=== PATIENT | female | born 1995 | race Caucasian/White ===

== ENCOUNTER 2020-04-08 08:58 | Emergency (ER) | payer SELFPAY ==
[2020-04-08 09:08] VITALS: BP 151/98; PULSE 106; RESP 16; TEMP 36.3; O2SAT 100; BMI 31.8
--- NOTE | 2020-04-08 09:22 | ED_ITS ---
HPI - General Adult General: Chief complaint: Urogenital-Female Stated complaint: pelvic pain, vomiting, Time Seen by Provider: 04/08/20 09:14 History of Present Illness: HPI narrative: Patient is a 24-year-old female that had a positive at-home test on has been having nausea, vomiting and pelvic pain. Past surgical history of see section. For the past 3 weeks patient says she has felt nauseous and has been vomiting. She started develo ping some bilateral sharp/stabbing pelvic pain about 2 days ago. She denies any vaginal bleeding, vaginal discharge, dysuria, hematuria, diarrhea or constipation. About 2 weeks ago, patient had a positive test at home. She is unsure on how far along she is but states that her last period was February 17. She says her menstruation is regular every month and very predictable. Denies any fever, chills, chest pain or shortness of breath. Patient says she does not want any Tylenol or any pain medications today. Associated symptoms: Reports nausea and vomiting; Deny chest pain, dyspnea, headache(s), rash or palpitations Review of Systems Const: Denies: fever(s), chills or fatigue Eyes: Denies: change in vision or eye discomfort ENMT: Denies: throat pain, odynophagia, nasal discharge or nasal congestion Card: Denies: chest pain, palpitations, edema, swelling of feet/ankles, dyspnea on exertion or orthopnea Resp: Denies: dyspnea, productive cough or non-productive cough GI: Reports: nausea and vomiting; Denies: abdominal pain, diarrhea, constipation or hematochezia : Reports: pelvic pain and other (positive test at home); Denies: flank pain, dysuria or hematuria Musc: Denies: neck pain, back pain or extremity swelling Skin/Breast: Denies: rash or new lesions Neuro: Denies: headache(s), numbness in extremities or weakness in extremities PFSH ED PFSH: Social History Smoking and tobacco status: never smoked Alcohol intake: current Alcohol intake frequency: holidays/special occasions only Female Reproductive History: Date of last menstrual period: 02/18/20 Physical Exam Const: COMMON NORMALS: no acute distress, patient oriented x3, healthy appearing and alert GENERAL APPEARANCE: cooperative and comfortable HENMT: COMMON NORMALS: normocephalic HEAD & SCALP: normocephalic MOUTH: Normal oral and palatal mucosa present THROAT: posterior oropharynx normal and uvula midline Eye: COMMON NORMALS: Equal, round and reactive pupils present PUPIL: Yes Equal, round and reactive pupils present Neck/C-Spine: COMMON NORMALS: supple GENERAL: Yes normal visual inspection Resp: COMMON NORMALS: normal respiratory effort, No retractions, No use of accessory muscles and clear to auscultation bilaterally EFFORT & INSPECTION: Yes able to speak in complete sentences, No tachypneic and No respiratory distress AUSCULTATION: clear to auscultation bilaterally Cardio: COMMON NORMALS: regular rate, regular rhythm, S1 normal heart sound present, S2 normal heart sound present, No gallops present (Cardio), No clicks present (Cardio), No murmurs present (Cardio) and Peripheral pulses 2+ throughout RATE: regular rate RHYTHM: regular rhythm HEART SOUNDS: S1 normal heart sound present and S2 normal heart sound present PERIPHERAL PULSES: Peripheral pulses 2+ throughout GI: COMMON NORMALS: Normal to inspection, nondistended, normoactive bowel sounds present, Soft to palpation and no masses PALPATION: Yes Soft to palpation and Yes Tenderness to palpation present (GI) Details: other (Mild bilateral lower pelvic tenderness.) : COMMON NORMALS: Yes no CVA tenderness BLADDER/KIDNEY EXAM: Yes no CVA tenderness Back/Pelvis: COMMON NORMALS: no CVA tenderness Extremity: COMMON NORMALS: normal to inspection and no pedal edema Neuro: COMMON NORMALS: patient oriented x3 and moves all extremities SENSORIUM/ORIENTATION: Yes alert Skin: GENERAL SKIN EXAM: dry skin Course Reevaluation(s): Reevaluation #1: After patient received IV fluids and IV Reglan, her nausea greatly improved. Vital Signs: Vital signs: Vital Signs Temperature 97.3 F L 04/08/20 09:08 Pulse Rate 93 04/08/20 11:58 Respiratory Rate 16 04/08/20 11:58 Blood Pressure 120/64 04/08/20 10:13 Pulse Oximetry 97 04/08/20 11:58 MDM - General Adult MDM Narrative: Medical decision making narrative: Patient is a 24-year-old female comes to the ED with pelvic pain, nausea and a positive test. Patient appears in no acute distress or pain. CBC and CMP were unremarkable. Urinalysis showed no signs of UTI. hCG quant 65,471. Ultrasound OB shows single viable intrauterine estimated around 7 weeks and 1 day gestation. Patient's nausea improved with IV fluids and Reglan. She was told to follow-up with her OB doctor and 7 to 10 days or next OB appointment. Return to ED precautions given. Patient was sent home with a prescription for Reglan to help with nausea. Patient understood and agreed with plan. Lab Data: Attestation: I reviewed the patient's lab results. Labs: Lab Results 04/08/20 04/08/20 04/08/20 Range/Units 09:30 09:30 09:30 WBC 6.9 (4.0-10.0) 10^3/ uL RBC 4.65 (4.1-5.3) 10^6/u L Hgb 13.6 (11.5-15.3) g/dL Hct 43.2 (37.0-47.0) % MCV 92.9 (81-99) fL MCH 29.2 (28.0-34.0) pg MCHC 31.5 (30.0-36.0) g/dL RDW 11.8 L (12.1-15.1) % Plt Count 287 (130-400) 10^3/c mm MPV 9.7 (7.4-10.4) fL Neut % (Auto) 68.9 % Lymph % (Auto) 20.1 % [place] % (Auto) 8.7 % Eos % (Auto) 1.5 % Baso % (Auto) 0.4 % Neut # (Auto) 4.72 (1.8-7.7) 10^3/u L Lymph # (Auto) 1.4 (0.8-4.8) 10^3/u L [place] # (Auto) 0.6 (0.2-0.9) 10^3/u L Eos # (Auto) 0.1 (0.0-0.8) 10^3/u L Baso # (Auto) 0.0 (0.0-0.1) 10^3/u L Nucleated RBC % (a uto) 0 % Nucleated RBCs # 0.0 /100WBC Sodium 137 (136-145) mmol/L Potassium 3.5 (3.5-5.1) mmol/L Chloride 101 (98-107) mmol/L Carbon Dioxide 24 (22-29) mmol/L Anion Gap 15.5 (5-19) BUN 8 (6-20) mg/dL Creatinine 0.5 (0.5-0.9) mg/dL GFR Calculation 150.3 H (90-130) mL/min Glucose 93 (65-115) mg/dL Calculated Osmolal ity 282 L (285-295) mOsm/k g Calcium 9.4 (8.5-10.5) mg/dL Total Bilirubin 0.6 (0.15-1.2) mg/dL AST 19 (0-32) U/L ALT 32 (0-33) U/L Alkaline Phosphata se 49 (35-105) IU/L Total Protein 8.1 (6.6-8.7) g/dL Albumin 4.9 (3.5-5.2) g/dL Globulin 3.2 (1.3-4.6) g/dL Lipase 15 (13-60) U/L HCG, Qual Positive H (Negative) Ser , Tad i-Qnt mIU/mL Urine Color (Yellow) Urine Appearance (CLEAR) Urine pH (5-7) Ur Specific Gravit y (1.005-1.030) Urine Protein (Negative) Urine Glucose (UA) (Normal) Urine Ketones (Negative) Urine Blood (Negative) Urine Nitrate (Negative) Urine Bilirubin (Negative) Urine Urobilinogen (Negative) mg/dL Ur Leukocyte Bri ase (Negative) Urine RBC (0-2) /hpf Urine WBC (0-5) /hpf Ur Squamous Epith Cells (0-5) /hpf Amorphous Sediment Urine Bacteria (NONE) /hpf Urine Mucus /hpf 04/08/20 04/08/20 Range/Units 09:30 09:30 WBC (4.0-10.0) 10^3/ uL RBC (4.1-5.3) 10^6/u L Hgb (11.5-15.3) g/dL Hct (37.0-47.0) % MCV (81-99) fL MCH (28.0-34.0) pg MCHC (30.0-36.0) g/dL RDW (12.1-15.1) % Plt Count (130-400) 10^3/c mm MPV (7.4-10.4) fL Neut % (Auto) % Lymph % (Auto) % [place] % (Auto) % Eos % (Auto) % Baso % (Auto) % Neut # (Auto) (1.8-7.7) 10^3/u L Lymph # (Auto) (0.8-4.8) 10^3/u L [place] # (Auto) (0.2-0.9) 10^3/u L Eos # (Auto) (0.0-0.8) 10^3/u L Baso # (Auto) (0.0-0.1) 10^3/u L Nucleated RBC % (a uto) % Nucleated RBCs # /100WBC Sodium (136-145) mmol/L Potassium (3.5-5.1) mmol/L Chloride (98-107) mmol/L Carbon Dioxide (22-29) mmol/L Anion Gap (5-19) BUN (6-20) mg/dL Creatinine (0.5-0.9) mg/dL GFR Calculation (90-130) mL/min Glucose (65-115) mg/dL Calculated Osmolal ity (285-295) mOsm/k g Calcium (8.5-10.5) mg/dL Total Bilirubin (0.15-1.2) mg/dL AST (0-32) U/L ALT (0-33) U/L Alkaline Phosphata se (35-105) IU/L Total Protein (6.6-8.7) g/dL Albumin (3.5-5.2) g/dL Globulin (1.3-4.6) g/dL Lipase (13-60) U/L HCG, Qual (Negative) Ser , Tad i-Qnt 50351.00 mIU/mL Urine Color Yellow (Yellow) Urine Appearance Clear (CLEAR) Urine pH 5.0 (5-7) Ur Specific Gravit y 1.020 (1.005-1.030) Urine Protein Trace (Negative) Urine Glucose (UA) Norm (Normal) Urine Ketones 1+ H (Negative) Urine Blood Neg (Negative) Urine Nitrate Negative (Negative) Urine Bilirubin Neg (Negative) Urine Urobilinogen 1 H (Negative) mg/dL Ur Leukocyte Bri ase Negative (Negative) Urine RBC None (0-2) /hpf Urine WBC None (0-5) /hpf Ur Squamous Epith Cells 0-4 H (0-5) /hpf Amorphous Sediment Not Reportable Urine Bacteria Trace (NONE) /hpf Urine Mucus 1+ /hpf Imaging Data^: US OB: Attestation: I personally reviewed and interpreted this imaging study as follows: Radiologist's impression: [address] [address] Ultrasound Report Signed Patient: Haylie Salvador Unit #: [id number] : [id number] Age/Sex: 24 / F ADM Date: 04/08/20 Loc: ER Room/Bed: Attending Dr: Ordering Provider/Ordering MD: Thuan Palacios Date of Service: 04/08/20 Procedure(s): US OB lmt with transvaginal Accession Number(s): [id number] Report Number: [id number] WS: [id number] PELVIC ULTRASOUND REASON FOR VISIT: with pelvic pain TECHNIQUE: Grayscale and Doppler transabdominal and transvaginal pelvic ultrasound. FINDINGS: Uterus measures 8.93 cm x 5.44 cm x 6.45 centimeters. Gestational sac and yolk sac identified. The fetus is identified and viable wi th a heart rate of 118. [place]-rump length is 0.73 cm. Yolk sac 0.58 cm. Gestational sac 2.11 cm. Probable small subchorionic hemorrhage. Right right ovary measures 2.57 cm x 1.81 cm x 2.41 centimeters. Left ovary measures 3.51 centimeters by 2.24 cm x 3.28 cm. Small left ovarian cyst. No pelvic mass or free pelvic fluid identified. US/US OB lmt with transvaginal IMPRESSION: Single viable intrauterine EGA 6 weeks 0 days to 7 weeks 1 day. Dictated By: Renato Hickman Jr, MD Signed By: Renato Hickman Jr, MD Signed Date/Time: 04/08/20 110 DD/ 1059 Discharge Plan Discharge Patient Disposition: Home Clinical Impression: Nausea and vomiting in prior to 22 weeks gestation Qualifiers: Weeks of gestation: less than 8 weeks Qualified Code(s): Z3A.01 - Less than 8 weeks gestation of Condition: Stable Prescriptions: New metoclopramide HCl 10 mg tablet,disintegrating 10 mg PO TID Qty: 21 RF: 0 No Action No Known Home Medications RF: 0 Discharge Orders: Discharge ED (Routine); Ordered 04/08/20 Ordered By: Thuan Palacios Discharge Diet: Regular Discharge Activity: Increase activity as tolerated Patient Instructions: Morning Sickness (ED), (ED), Diet (GEN) Activity Restrictions/Additional Instructions: Follow-up with medical provider as directed. Contact OB doctor and set up appointment for first care appointment. Take the prescribed Reglan to help with any nausea. Stay hydrated and drink plenty of water and have small snacks available throughout the day to help with nausea. Take medications as prescribed. Return to the ER or your medical provider if condition worsens, increase pelvic pain, vaginal bleeding or fevers. Please read and understand discharge instructions. If any questions, please ask. Coding Level of Care Code ED Taping Machine Operator for Teresa Fwd Exam Comprehensive
[2020-04-08 09:45] LABS: Basophils % 0.4 %; Eosinophils # 0.1 10^3/uL (0.0-0.8); Eosinophils % 1.5 %; Hematocrit 43.2 % (37.0-47.0); Hemoglobin 13.6 g/dL (11.5-15.3); Lymphocytes # 1.4 10^3/uL (0.8-4.8); Lymphocytes % 20.1 %; Mean Corpuscular HGB Conc 31.5 g/dL (30.0-36.0); Mean Corpuscular Hemoglobin 29.2 pg (28.0-34.0); Mean Corpuscular Volume 92.9 fL (81-99); Mean Platelet Volume 9.7 fL (7.4-10.4); Monocytes # 0.6 10^3/uL (0.2-0.9); Monocytes % 8.7 %; Neutrophils # 4.72 10^3/uL (1.8-7.7); Neutrophils % 68.9 %; Nucleated Red Blood Cells % 0 %; Platelet Count 287 10^3/cmm (130-400); Red Blood Count 4.65 10^6/uL (4.1-5.3); Red Cell Distribution Width 11.8 % (12.1-15.1); White Blood Count 6.9 10^3/uL (4.0-10.0)
--- NOTE | 2020-04-08 09:51 | US_ITS ---
WS: [id number] PELVIC ULTRASOUND REASON FOR VISIT: with pelvic pain TECHNIQUE: Grayscale and Doppler transabdominal and transvaginal pelvic ultrasound. FINDINGS: Uterus measures 8.93 cm x 5.44 cm x 6.45 centimeters. Gestational sac and yolk sac identified. The fetus is identified and viable with a heart rate of 118. [place]-rump length is 0.73 cm. Yolk sac 0.58 cm. Gestational sac 2.11 cm. Probable small subchorionic hemorrhage. Right right ovary measures 2.57 cm x 1.81 cm x 2.41 centimeters. Left ovary measures 3.51 centimeters by 2.24 cm x 3.28 cm. Small left ovarian cyst. No pelvic mass or free pelvic fluid identified. US/US OB lmt with transvaginal IMPRESSION: Single viable intrauterine EGA 6 weeks 0 days to 7 weeks 1 day.
[2020-04-08 10:00] LABS: Bilirubin Urine Neg (Negative); Blood Urine Neg (Negative); Glucose Urine UA Norm (Normal); Ketones Urine 1+ (Negative); Leukocyte Esterase Urine Negative (Negative); Nitrate Urine Negative (Negative); Protein Urine Trace (Negative); Urine Appearance Clear (CLEAR); Urine Color Yellow (Yellow); Urobilinogen Urine 1 mg/dL (Negative)
[2020-04-08] MEDS: metoclopramide 5 mg/mL SDV 2 mL 10 MG IVP (10:00)
[2020-04-08] MEDS: sodium chloride 0.9% 1,000 ML 999 ML IV (10:00)
[2020-04-08 10:08] LABS: Alanine Aminotransferase 32 U/L (0-33); Albumin Level 4.9 g/dL (3.5-5.2); Alkaline Phosphatase 49 IU/L (35-105); Aspartate Amino Transferase 19 U/L (0-32); Blood Urea Nitrogen 8 mg/dL (6-20); Calcium 9.4 mg/dL (8.5-10.5); Carbon Dioxide 24 mmol/L (22-29); Globulin 3.2 g/dL (1.3-4.6); Glomerular Filtration Rate 150.3 mL/min (90-130); Glucose 93 mg/dL (65-115); Lipase 15 U/L (13-60); Total Bilirubin 0.6 mg/dL (0.15-1.2); Total Protein 8.1 g/dL (6.6-8.7)
[2020-04-08 10:11] LABS: HCG, Serum Qual Positive (Negative)
[2020-04-08 10:13] VITALS: BP 120/64; PULSE 83; RESP 22; O2SAT 99
[2020-04-08 10:15] LABS: Squamous Epithelial Cell Urine 0-4 /hpf (0-5)
[2020-04-08 10:16] LABS: Add Urine Culture? No; Bacteria Urine TRACE /hpf; Mucus Urine 1+ /hpf
[2020-04-08 10:28] LABS: Anion Gap 15.5 (5-19); Chloride 101 mmol/L (98-107); Osmolality Calculated 282 mOsm/kg (285-295); Potassium 3.5 mmol/L (3.5-5.1); Sodium 137 mmol/L (136-145)
[2020-04-08 10:31] VITALS: PULSE 88; RESP 22; O2SAT 98
[2020-04-08 11:58] VITALS: PULSE 93; RESP 16; O2SAT 97
--- NOTE | 2020-04-11 14:01 | DCPLANNER ---
Addendum entered by Lilo Tristan 04/26/20 12:05: fund manager called [facility] to confirm if patient had called to schedule a follow up appointment. fund manager was told that no appointment had been scheduled for patient. Addendum entered by Lilo Tristan 04/19/20 10:35: fund manager called [facility] to confirm that patient was accepted by Dr. Garcia. fund manager was told that patients information had been reviewed and that patient would need to call and make appointment. fund manager called patient and informed patient that she would need to call [facility] and schedule a follow up appointment. Original Note: fund manager had message to speak with patient about getting established with a primary care physician. fund manager spoke with patient, she stated that she would like to see Dr. Garcia at [facility]. fund manager faxed patients information to [facility] for review.
== END 2020-04-08 12:00 | disposition home or self-care (01) ==
PROVIDERS: Emergency Provider Physician Assistant
DX: O26.891 Other specified pregnancy related conditions, first trimester (principal); R11.2 Nausea with vomiting, unspecified; Z3A.01 Less than 8 weeks gestation of pregnancy
CPT/HCPCS: 12345; 76815; 76817; 76830; 76857; 80053; 81001; 83690; 84702; 84703; 85025; 96361; 96374; 99283; J2765; J7030

== ENCOUNTER 2020-04-18 10:46 | Emergency (ER) | payer SELFPAY ==
[2020-04-18] VITALS (10 sets, daily range): BP systolic 103–134; BP diastolic 65–93; PULSE 78–112; RESP 14–18; TEMP 36.4–36.9; O2SAT 99–100; BMI 26.2
--- NOTE | 2020-04-18 12:52 | ED_ITS ---
HPI - Allergic Reaction General: Chief complaint: Allergic Reaction Stated complaint: 8 wks /poss allergic reaction Time Seen by Provider: 04/18/20 12:52 History of Present Illness: HPI narrative: Patient is a 24-year-old female comes to the ED with nausea vomiting and is approximately 8 weeks . Patient was seen here in the ED for nausea vomiting back on April 08. She was discharged with a prescription for Reglan to help with nausea. Patient says she still continues to be nauseous and the Reglan has not been helping her. She states that the Reglan was also given her some side effects of anxiety and worsening nausea and vomiting. Patient stopped taking the Reglan today and took a dose of Benadryl this morning 25 mg. Denies any vaginal bleeding, vaginal discharge, abdominal cramping or bladder or bowel symptoms. Associated symptoms: Reports nausea and vomiting; Deny abdominal pain Review of Systems Const: Denies: fever(s), chills or fatigue Eyes: Denies: change in vision or eye discomfort ENMT: Denies: throat pain, odynophagia, nasal discharge or nasal congestion Card: Denies: chest pain, palpitations, edema, swelling of feet/ankles, dyspnea on exertion or orthopnea Resp: Denies: dyspnea, productive cough or non-productive cough GI: Reports: nausea and vomiting; Denies: abdominal pain, diarrhea, constipation or hematochezia : Denies: flank pain, dysuria or hematuria Musc: Denies: neck pain, back pain or extremity swelling Skin/Breast: Denies: rash or new lesions Neuro: Denies: headache(s), numbness in extremities or weakness in extremities Psych: Reports: anxiety (reaction to reglan) [facility] ED PFSH: Social History Smoking and tobacco status: never smoked Alcohol intake: current Alcohol intake frequency: holidays/special occasions only Female Reproductive History: Date of last menstrual period: 02/18/20 Physical Exam Const: COMMON NORMALS: no acute distress, patient oriented x3, healthy appearing and alert GENERAL APPEARANCE: cooperative, comfortable and anxious HENMT: COMMON NORMALS: normocephalic HEAD & SCALP: normocephalic MOUTH: Normal oral and palatal mucosa present THROAT: posterior oropharynx normal and uvula midline Neck/C-Spine: COMMON NORMALS: supple GENERAL: Yes normal visual inspection Resp: COMMON NORMALS: normal respiratory effort, No retractions, No use of accessory muscles and clear to auscultation bilaterally AUSCULTATION: clear to auscultation bilaterally Cardio: COMMON NORMALS: regular rate, regular rhythm, S1 normal heart sound present, S2 normal heart sound present, No gallops present (Cardio), No clicks present (Cardio), No murmurs present (Cardio) and Peripheral pulses 2+ throughout RATE: regular rate RHYTHM: regular rhythm HEART SOUNDS: S1 normal heart sound present and S2 normal heart sound present PERIPHERAL PULSES: Peripheral pulses 2+ throughout GI: COMMON NORMALS: Normal to inspection, nondistended, normoactive bowel sounds present, Soft to palpation, non-tender and no masses PALPATION: Yes Soft to palpation : COMMON NORMALS: Yes no CVA tenderness BLADDER/KIDNEY EXAM: Yes no CVA tenderness Back/Pelvis: COMMON NORMALS: no CVA tenderness Extremity: COMMON NORMALS: normal to inspection Neuro: COMMON NORMALS: patient oriented x3 and moves all extremities SENSORIUM/ORIENTATION: Yes alert Skin: GENERAL SKIN EXAM: dry skin Course Vital Signs: Vital signs: Vital Signs Temperature 97.5 F L 04/18/20 11:11 Pulse Rate 91 04/18/20 15:36 Respiratory Rate 18 04/18/20 15:36 Blood Pressure 117/66 04/18/20 15:36 Pulse Oximetry 99 04/18/20 15:36 MDM - Allergic Reaction MDM Narrative: Medical decision making narrative: Patient is a 8-week 24-year-old female comes to the ED with nausea and vomiting. Patient denies any fevers, vaginal bleeding, vaginal discharge dysuria, hematuria or any cramping. She was seen here in the ED for same complaint on April 08 and sent home with a prescription for Reglan. Patient has been taking Reglan and has not helped her nausea and vomiting. She feels like the Reglan is causing her to be anxious in the nausea and vomiting to get worse. CBC, CMP and UA were unremarkable. Patient was given IV fluids, Zofran and 50 mg of Benadryl while here in the ED and her symptoms greatly improved. Patient was told to stop taking the Reglan. Patient was discharged in sent home with a prescription for Zofran for nausea. I placed an order with case management for patient to be referred to an OB doctor. Patient says she has been calling around and has not had any luck setting up an appointment yet. I told patient nurse case manager will call in the next couple days to set up an appointment with an OB provider. Return to ED precautions given. Patient understood and agreed with plan. Lab Data: Attestation: I reviewed the patient's lab results. Labs: Lab Results 04/18/20 04/18/20 04/18/20 Range/Units 13:55 14:40 14:40 WBC 8.2 (4.0-10.0) 10^3/ uL RBC 4.36 (4.1-5.3) 10^6/u L Hgb 12.7 (11.5-15.3) g/dL Hct 38.9 (37.0-47.0) % MCV 89.2 (81-99) fL MCH 29.1 (28.0-34.0) pg MCHC 32.6 (30.0-36.0) g/dL RDW 11.6 L (12.1-15.1) % Plt Count 351 (130-400) 10^3/c mm MPV 9.8 (7.4-10.4) fL Neut % (Auto) 74.3 % Lymph % (Auto) 16.9 % [place] % (Auto) 7.6 % Eos % (Auto) 0.6 % Baso % (Auto) 0.4 % Neut # (Auto) 6.07 (1.8-7.7) 10^3/u L Lymph # (Auto) 1.4 (0.8-4.8) 10^3/u L [place] # (Auto) 0.6 (0.2-0.9) 10^3/u L Eos # (Auto) 0.1 (0.0-0.8) 10^3/u L Baso # (Auto) 0.0 (0.0-0.1) 10^3/u L Nucleated RBC % (a uto) 0 % Nucleated RBCs # 0.0 /100WBC Sodium 136 (136-145) mmol/L Potassium 3.4 L (3.5-5.1) mmol/L Chloride 102 (98-107) mmol/L Carbon Dioxide 18 L (22-29) mmol/L Anion Gap 19.4 H (5-19) BUN 11 (6-20) mg/dL Creatinine 0.4 L (0.5-0.9) mg/dL GFR Calculation 194.5 H (90-130) mL/min Glucose 75 (65-115) mg/dL Calculated Osmolal ity 280 L (285-295) mOsm/k g Calcium 9.2 (8.5-10.5) mg/dL Total Bilirubin 0.9 (0.15-1.2) mg/dL AST 19 (0-32) U/L ALT 46 H (0-33) U/L Alkaline Phosphata se 45 (35-105) IU/L Total Protein 7.5 (6.6-8.7) g/dL Albumin 4.6 (3.5-5.2) g/dL Globulin 2.9 (1.3-4.6) g/dL Urine Color [place] (Yellow) Urine Appearance Hazy A (CLEAR) Urine pH 5 (5-7) Ur Specific Gravit y 1.025 (1.005-1.030) Urine Protein Neg (Negative) Urine Glucose (UA) Norm (Normal) Urine Ketones 3+ H (Negative) Urine Blood Neg (Negative) Urine Nitrate Negative (Negative) Urine Bilirubin 1+ H (Negative) Urine Urobilinogen 4 H (Negative) mg/dL Ur Leukocyte Bri ase Negative (Negative) Urine RBC 0-4 H (0-2) /hpf Urine WBC None (0-5) /hpf Ur Squamous Epith Cells 5-10 H (0-5) /hpf Amorphous Sediment Not Reportable Urine Bacteria 2+ H (NONE) /hpf Urine Mucus 4+ /hpf Discharge Plan Discharge Patient Disposition: Home Clinical Impression: Nausea and vomiting during Condition: Stable Prescriptions: New ondansetron HCl 4 mg tablet 4 mg PO Q8H Qty: 30 RF: 0 No Action metoclopramide HCl 10 mg tablet,disintegrating 10 mg PO TID Qty: 21 RF: 0 Discharge Orders: Discharge ED (Routine); Ordered 04/18/20 Ordered By: Thuan Palacios Discharge Diet: Advance as tolerated Discharge Activity: Increase activity as tolerated Patient Instructions: Acute Nausea and Vomiting (ED) Activity Restrictions/Additional Instructions: Follow-up with OB provider as directed. Stop taking the Reglan as previously prescribed. Sending you with a prescription for Zofran to use for nausea. Take medications as prescribed. Drink plenty of fluids and stay hydrated. Return to the ER or your medical provider if condition worsens. Please read and understand discharge instructions. If any questions, please ask. Coding Level of Care Code ED Finance Attorney for Teresa Fwd Exam Comprehensive
[2020-04-18] MEDS: ondansetron 2 mg/ML SDV 2 mL 4 MG IVP (14:57)
[2020-04-18] MEDS: diphenhydrAMINE 50 mg/mL SDV 1mL IVP (14:57)
[2020-04-18] MEDS: sodium chloride 0.9% 1,000 ML 999 ML IV (14:58)
[2020-04-18 15:10] LABS: Basophils % 0.4 %; Eosinophils # 0.1 10^3/uL (0.0-0.8); Eosinophils % 0.6 %; Hematocrit 38.9 % (37.0-47.0); Hemoglobin 12.7 g/dL (11.5-15.3); Lymphocytes # 1.4 10^3/uL (0.8-4.8); Lymphocytes % 16.9 %; Mean Corpuscular HGB Conc 32.6 g/dL (30.0-36.0); Mean Corpuscular Hemoglobin 29.1 pg (28.0-34.0); Mean Corpuscular Volume 89.2 fL (81-99); Mean Platelet Volume 9.8 fL (7.4-10.4); Monocytes # 0.6 10^3/uL (0.2-0.9); Monocytes % 7.6 %; Neutrophils # 6.07 10^3/uL (1.8-7.7); Neutrophils % 74.3 %; Nucleated Red Blood Cells % 0 %; Platelet Count 351 10^3/cmm (130-400); Red Blood Count 4.36 10^6/uL (4.1-5.3); Red Cell Distribution Width 11.6 % (12.1-15.1); White Blood Count 8.2 10^3/uL (4.0-10.0)
[2020-04-18 15:14] LABS: Bilirubin Urine 1+ (Negative); Blood Urine Neg (Negative); Glucose Urine UA Norm (Normal); Ketones Urine 3+ (Negative); Leukocyte Esterase Urine Negative (Negative); Nitrate Urine Negative (Negative); Protein Urine Neg (Negative); Specific Gravity, Urine 1.025 (1.005-1.030); Urine Color Orange (Yellow); Urobilinogen Urine 4 mg/dL (Negative); pH Urine 5 (5-7)
[2020-04-18 15:15] LABS: Add Urine Culture? No; Bacteria Urine 2+ /hpf; Mucus Urine 4+ /hpf; RBC Urine 0-4 /hpf (0-2); Urine Appearance Hazy (CLEAR)
[2020-04-18 15:15] LABS: Alanine Aminotransferase 46 U/L (0-33); Albumin Level 4.6 g/dL (3.5-5.2); Alkaline Phosphatase 45 IU/L (35-105); Anion Gap 19.4 (5-19); Aspartate Amino Transferase 19 U/L (0-32); Blood Urea Nitrogen 11 mg/dL (6-20); Calcium 9.2 mg/dL (8.5-10.5); Carbon Dioxide 18 mmol/L (22-29); Chloride 102 mmol/L (98-107); Globulin 2.9 g/dL (1.3-4.6); Glomerular Filtration Rate 194.5 mL/min (90-130); Glucose 75 mg/dL (65-115); Osmolality Calculated 280 mOsm/kg (285-295); Potassium 3.4 mmol/L (3.5-5.1); Sodium 136 mmol/L (136-145); Total Bilirubin 0.9 mg/dL (0.15-1.2); Total Protein 7.5 g/dL (6.6-8.7)
--- NOTE | 2020-04-19 10:36 | DCPLANNER ---
manager community had message to schedule patient a follow up appointment with an OB physician. manager community worked with patient in the past to get established with a primary care physician and OB physician. manager community spoke with patient, she wanted case manger to refer patient [place] [facility] [place] Garcia, transplant case manager faxed patients information to the clinic for review. manager community [place] [facility] was told that patients information had been reviewed, and that patient would need to call and make appointment. manager community called patient and told patient to call the clinic to schedule a follow up appointment.
== END 2020-04-18 15:36 | disposition home or self-care (01) ==
PROVIDERS: Emergency Provider Physician Assistant
DX: O26.891 Other specified pregnancy related conditions, first trimester (principal); Z3A.08 8 weeks gestation of pregnancy; R11.2 Nausea with vomiting, unspecified
CPT/HCPCS: 12345; 80053; 81001; 85025; 96361; 96374; 96375; 99283; J1200; J2405; J7030

== ENCOUNTER 2020-09-01 14:35 | Outpatient (CLI) | payer SELFPAY ==
[2020-09-01 15:08] VITALS: BP 126/75; PULSE 111
[2020-09-01 15:23] VITALS: BP 128/77; PULSE 125
--- NOTE | 2020-09-01 15:27 | US_ITS ---
WS: [id number] ULTRASOUND OB LIMITED TECHNIQUE: Limited ultrasound examination of the fetus. CLINICAL INFORMATION: kicked in stomach, decreased movement FINDINGS: Cervix measures 4.2 cm Single interuterine gestation. presentation is vertex Placental location is posterior. heart rate 150 BPM. Normal KEANU 5.74 cm Biophysical profile 8 out of 8. breathin movement: 2 tone: 2 Amniotic fluid: 2 IMPRESSION Normal biophysical profile 8 out of 8
[2020-09-01 15:38] VITALS: BP 118/66; PULSE 108
[2020-09-01 15:53] VITALS: BP 118/68; PULSE 109
[2020-09-01 15:58] VITALS: BMI 30.4
[2020-09-01 16:08] VITALS: BP 112/69; PULSE 107
[2020-09-01 18:26] LABS: Nitrazine Paper, PH Negative
== END 2020-09-01 16:20 | disposition home or self-care (01) ==
LOC: OPOB 14:43 → OBGYN 15:00
PROVIDERS: Visit Provider Family Medicine
DX: O36.8190 Decreased fetal movements, unspecified trimester, not applicable or unspecified (principal); Z3A.00 Weeks of gestation of pregnancy not specified
CPT/HCPCS: 76819; 83986; 99211

== ENCOUNTER 2020-11-13 13:55 | Outpatient (CLI) | payer OTHER, SELFPAY ==
[2020-11-13] VITALS (8 sets, daily range): BP systolic 121–142; BP diastolic 74–92; PULSE 90–118; RESP 16; TEMP 36.6; BMI 34.0
[2020-11-13 15:11] LABS: Basophils % 0.3 %; Eosinophils # 0.1 10^3/uL (0.0-0.8); Eosinophils % 1.3 %; Hematocrit 32.2 % (37.0-47.0); Hemoglobin 10.1 g/dL (11.5-15.3); Lymphocytes # 1.4 10^3/uL (0.8-4.8); Lymphocytes % 17.9 %; Mean Corpuscular HGB Conc 31.4 g/dL (30.0-36.0); Mean Corpuscular Hemoglobin 27.4 pg (28.0-34.0); Mean Corpuscular Volume 87.5 fL (81-99); Mean Platelet Volume 10.8 fL (7.4-10.4); Monocytes # 0.8 10^3/uL (0.2-0.9); Monocytes % 10.4 %; Neutrophils # 5.34 10^3/uL (1.8-7.7); Neutrophils % 69.3 %; Nucleated Red Blood Cells % 0 %; Platelet Count 199 10^3/cmm (130-400); Red Blood Count 3.68 10^6/uL (4.1-5.3); Red Cell Distribution Width 13.3 % (12.1-15.1); White Blood Count 7.7 10^3/uL (4.0-10.0)
[2020-11-13 15:51] LABS: Bilirubin Urine Neg (Negative); Blood Urine Neg (Negative); Glucose Urine UA Norm (Normal); Ketones Urine Negative (Negative); Leukocyte Esterase Urine 2+ (Negative); Nitrate Urine Negative (Negative); Protein Urine Neg (Negative); Specific Gravity, Urine 1.015 (1.005-1.030); Urine Appearance Clear (CLEAR); Urine Color Yellow (Yellow); Urobilinogen Urine Norm (Negative); pH Urine 6.5 (5-7)
[2020-11-13 15:52] LABS: Add Urine Culture? No; Bacteria Urine 1+ /hpf; WBC Urine 0-4 /hpf (0-5)
== END 2020-11-13 16:15 | disposition home or self-care (01) ==
LOC: OPOB 14:05 → OBGYN 14:06
PROVIDERS: Visit Provider Family Medicine
DX: O26.899 Other specified pregnancy related conditions, unspecified trimester (principal); Z3A.00 Weeks of gestation of pregnancy not specified; R10.2 Pelvic and perineal pain
CPT/HCPCS: 36415; 59025; 81001; 85025; 99211

== ENCOUNTER 2020-11-22 05:25 | Inpatient (IN) | payer OTHER, SELFPAY ==
--- NOTE | 2020-11-11 16:44 | ANES.PREANE2 ---
Pre-Anesthetic Assessment Pre-Anesthetic Assessment: Height/Weight: Height 1.6 m Proposed Procedure: Operation Date: 11/22/20 07:00 Proposed Procedures p Section With Tubal(Not Applicable) - Hao Hicks MD Was Beta Ivan taken within 24 hours: N/A Was Clonidine taken within 24 hours: N/A Social: Social History: No alcohol and No tobacco Exam: Pre-Anes Outpt Exam: alert, oriented x 3, clear to auscultation bilaterally and regular rate & rhythm Airway: Submandibular: WNL Cervical ROM: WNL MP: 2 Dentition: Full History/ROS: No significant history except as noted Anesthetic Plan: ASA status: 2 Other: SAB Risk of > 500 ml blood loss (7ml/kg in children): Yes, adequate IV access and fluids planned PFSH Anesthesia PFSH: Social History Smoking and tobacco status: never smoked Alcohol intake: current Alcohol intake frequency: holidays/special occasions only Female Reproductive History: Date of last menstrual period: 02/18/20 Data Anesthesia Cardiac Studies: No Data to Display
[2020-11-22] VITALS (29 sets, daily range): BP systolic 93–135; BP diastolic 42–85; PULSE 67–100; RESP 15–18; TEMP 35.8–37.6; O2SAT 95–100; BMI 33.8
[2020-11-22] MEDS: lactated ringers 1,000 ML 999 ML IV (05:55)
[2020-11-22] MEDS: famotidine 20 mg/2 mL INJ IVP (06:33)
[2020-11-22] MEDS: metoclopramide 5 mg/mL SDV 2 mL 10 MG IVP (06:33)
[2020-11-22] MEDS: citric acid-sodium citrate 30 mL UDC PO (06:33)
[2020-11-22] MEDS: clindamycin 900 MG/50 ML PREMIX 100 MG IV (06:34)
--- NOTE | 2020-11-22 06:37 | PM.OBGYHP ---
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 The patient has had an unremarkable . There have been no complications. I saw her in my office earlier in her we talked about her options including a TOLAC. After discussing the pros and cons of each option, she decided to proceed with a repeat section. We also discussed permanent sterilization. We also discussed alternatives as well as risks prior to her decision to proceed with a tubal ligation. Once again this morning we discussed those risks again. She still would like to proceed. Specifically we discussed the risks of bleeding, infection, and damage intra-abdominal organs. Present Details Date of Last Menstrual Period: 02/18/20 Calculated Date of Delivery: 11/24/20 Gestational Age Based on Last Menstrual Period: 39 Labs Rubella: Immune RPR: Negative GBS: Negative Review of Systems General: Reports: 10 or more systems reviewed and unremarkable except in HPI and below Const: Reports: fatigue; Denies: fever(s) Eyes: Denies: change in vision Card: Denies: chest pain Musc: Reports: back pain Paul/Lymph: Denies: easy bruising Medications/Allergies Home Medications Medication Instructions Recorded Confirmed Last Taken Type acetaminophen [Tylenol Extra 1,000 mg PO PRN PRN 11/13/20 11/13/20 11/21/20 12:00 History Strength] diphenhydramine HCl [Benadryl] 25 mg PO BEDTIME PRN 11/13/20 11/13/20 11/20/20 21:00 History ferrous sulfate [iron] 325 mg PO DAILY 11/13/20 11/13/20 11/21/20 08:00 History [id number] 1 tab PO 11/13/20 11/21/20 08:00 History [] Allergies Allergy/AdvReac Type Severity Reaction Status Date / Time amoxicillin Allergy ALGY-Difficulty Verified 11/22/20 06:16 Breathing Penicillins Allergy ALGY-Difficulty Verified 11/22/20 06:16 Breathing PFSH 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 PFSH: Social History Smoking and tobacco status: never smoked Alcohol intake: current Alcohol intake frequency: holidays/special occasions only Vitals/I&O/Wt Last Vital Signs Temp 96.4 F L 11/22/20 05:40 Pulse 98 11/22/20 05:40 BP 135/82 11/22/20 05:40 Weight last 48 hrs Weight 185 lb Physical Exam Const: COMMON NORMALS: patient oriented x3 and alert HENMT: COMMON NORMALS: moist oral mucous membranes HEAD & SCALP: normal to inspection Chest: COMMONS NORMALS: normal inspection of the chest Resp: COMMON NORMALS: clear to auscultation bilaterally AUSCULTATION: clear to auscultation bilaterally Cardio: COMMON NORMALS: regular rate and regular rhythm RATE: regular rate RHYTHM: regular rhythm GI: INSPECTION: Yes normal to inspection and Yes other (Gravid) Extremity: COMMON NORMALS: normal to inspection GENERAL: Yes edema (Trace) Neuro: COMMON NORMALS: patient oriented x3, moves all extremities and no sensory deficits noted SENSORIUM/ORIENTATION: Yes alert Psych: COMMON NORMALS: mental status grossly normal Skin: COMMON NORMALS: no rashes or lesions noted GENERAL SKIN EXAM: no rashes or lesions noted A&P Assessment and plan (1) 39 weeks gestation of : Status: Acute (2) History of : We will proceed with a lower transverse section and a bilateral ligation. As long as the surgery goes smoothly, I anticipate she will have a routine and post care. Because she has had a anaphylactic reaction to penicillin, we will proceed with clindamycin and gentamicin. Status: Acute (3) Sterilization consult: Status: Acute Attestations Medical Necessity Statement*: Routine and post care Coding Level of Care Code Acute Labor Supervisor for Chg Fwd Diagnoses 39 weeks gestation of Z3A.39 History of Z98.891 Sterilization consult Z30.09
[2020-11-22 07:08] LABS: Basophils % 0.4 %; Eosinophils # 0.1 10^3/uL (0.0-0.8); Eosinophils % 1.5 %; Hematocrit 33.6 % (37.0-47.0); Hemoglobin 10.4 g/dL (11.5-15.3); Lymphocytes # 1.6 10^3/uL (0.8-4.8); Lymphocytes % 21.6 %; Mean Corpuscular Hemoglobin 27.2 pg (28.0-34.0); Mean Platelet Volume 11.7 fL (7.4-10.4); Monocytes # 0.8 10^3/uL (0.2-0.9); Monocytes % 10.3 %; Neutrophils % 65.4 %; Nucleated Red Blood Cells % 0 %; Platelet Count 222 10^3/cmm (130-400); Red Blood Count 3.82 10^6/uL (4.1-5.3); Red Cell Distribution Width 13.6 % (12.1-15.1); White Blood Count 7.4 10^3/uL (4.0-10.0)
--- NOTE | 2020-11-22 07:29 | P.ANESUD_ITS ---
Pre-Anesthetic Update Pre-Anesthetic Assessment: Date of Surgery/Procedure: 11/22/20 Proposed Procedure: Operation Date: 11/22/20 07:00 Proposed Procedures p Section With Tubal(Not Applicable) - Hao Hicks MD Any changes to Pre-Anesthetic Assessment?: No Last Intake: Intake Last Liquid Date 11/21/20 Last Liquid Time 20:30 Last Solid Date 11/21/20 Last Solid Time 20:30 Labs Last 48hrs: Laboratory Results - last 48 hr 11/22/20 05:48 WBC 7.4 RBC 3.82 L Hgb 10.4 L Hct 33.6 L MCV 88.0 MCH 27.2 L MCHC 31.0 RDW 13.6 Plt Count 222 MPV 11.7 H Neut % (Auto) 65.4 Lymph % (Auto) 21.6 [place] % (Auto) 10.3 Eos % (Auto) 1.5 Baso % (Auto) 0.4 Neut # (Auto) 4.80 Lymph # (Auto) 1.6 [place] # (Auto) 0.8 Eos # (Auto) 0.1 Baso # (Auto) 0.0 Nucleated RBC % (a uto) 0 Nucleated RBCs # 0.0 Vitals: Temperature 96.4 F L 11/22/20 06:37 Pulse Rate 84 11/22/20 06:38 Pulse Rhythm 11/22/20 06:07 Pulse Strength 3+ Normal 11/22/20 06:07 Respiratory Effort Non-Labored 11/22/20 06:07 Respiratory Depth Normal 11/22/20 06:07 Respiratory Patter n 11/22/20 06:07 Blood Pressure 129/85 11/22/20 06:38 Oxygen Delivery Me thod 11/22/20 06:07 Exam: Pre-Anes Outpt Exam: alert, oriented x 3, clear to auscultation bilaterally and regular rate & rhythm Cardiac Studies: No Data to Display
--- NOTE | 2020-11-22 08:01 | PM.OP ---
Operative Report Date of procedure: November 22, 2020 Pre-op Diagnosis: 39-week female presenting for repeat and tubal ligation Post-op diagnosis: same Procedure Done: 1. Repeat lower transverse section 2. Intraoperative bilateral tubal ligation using a modified [place] technique Specimens removed/disposition: 1. Female with a weight of 8 pounds 3 ounces and Apgars of 9 and 10 Pathology: other (Bilateral fallopian tube segments with the right segment being tagged) Surgeon: Hao Hicks Anesthesia: Other (Spinal) Estimated blood loss (mL): 600 Complications: None Condition: stable Disposition: floor (OB) Brief History: Refer to history and physical Procedure: The patient was brought back to the operating room where she was prepped and draped in usual sterile fashion. Anesthesia was found to be adequate. A lower transverse skin incision was then made with a #10 blade. I then dissected down to the underlying subcutaneous tissue until arriving at the prerectal fascia. The fascia was then nicked with the scalpel bilaterally. The fascial incisions were then carried laterally with Mcclendon scissors. Attention was then turned to the superior aspect of the incision which was grasped with kochers and tented up away from the underlying rectus abdominis muscles. The muscles were then dissected away from the fascia manually, and later with Mcclendon scissors. Attention was then turned to the inferior aspect of the incision, and the fascia was dissected away from the underlying muscle in similar fashion. The rectus abdominis muscles were then spread manually. The peritoneum was entered manually. Excellent visualization of the uterus was noted. A lower transverse uterine incision was then made with a #10 blade. Upon arriving at the intrauterine cavity, the uterine incision was then extended manually. The was noted to be in vertex position. The baby was delivered without difficulty. After delivery of the head, the mouth and nose were suctioned at the site of the incision. There was no meconium. There was no nuchal cord. The baby was then completely delivered and placed on the abdomen. The cord was cut and clamped. The baby was then handed to the waiting nurse. The placenta was removed intact. The uterus was externalized. The intrauterine cavity was cleansed of any remaining debris. The uterine incision was reapproximated in 2 layers. The first layer was performed with 0 Vicryl in a running locked stitch. The second layer was an imbricating stitch also using 0 Vicryl. Attention was then turned to the right fallopian tube which was ligated cut and cauterized in a modified Efraín technique using 0 chromic. Attention was then turned to the left fallopian tube which was also ligated cut and cauterized in similar fashion. The uterus was replaced into the abdomen without difficulty. The peritoneum was then irrigated with warm saline. I reexamined the uterine incision and found it to be hemostatic. The rectus abdominis muscles were then reapproximated using 0 Vicryl in a running stitch. The fascia was then reapproximated using 0 Vicryl in running stitch. The skin was reapproximated using farzad. A sterile dressing was placed. All counts were correct x2. Both the mother and baby were in stable condition. Associated Problem List Diagnoses (1) Sterilization consult: (2) History of : (3) 39 weeks gestation of :
[2020-11-22] MEDS: meperidine 50 mg/mL INJ 12.5 MG IVP (08:32)
--- NOTE | 2020-11-22 08:40 | SUR.PHASEI ---
0840 pt had feeling at T11 before transfer. pt's bed elevated to 5 degrees for comfort.
--- NOTE | 2020-11-22 08:40 | SUR.PHASEI ---
0757 pt resting in bed with warm blankets applied. Skin PWD. at bedside. pt complaint of left dull shoulder pain at a 5. bp 93/42. Will monitor without medication. Aleksandra Ramirez in OB OR room with . tested spinal. Numb at T7 with needle. No complaints of respiratory issues. Fundus was massaged by Dr. Alvarado before leaving room. 0805 pt resting with in mother's arms. at bedside. Numb at T7. [place] massaged fundus. about tablespoon of blood of exiting vagina. discomfort at left shoulder. continue to monitor. 0822 decrease in pain level at left shoulder from 5 to 4. Fundus is firm. check blue chunk and no active bleeding or clots. pt starting to shiver. reapply warm blankets. father holding in arms, wrapped in blanket 0832 pt has feeling at T8. pt continuing to shiver. gave demerol to help shivering. fundal massage. small amount of blood exiting vagina during massage. fundus firm. Aleksandra Ramirez took newborm to crib to assess. 0835 pain decrease to 2. shivering minimal. 0840 transporting to OB floor.
[2020-11-22] MEDS: ketorolac 30 mg/mL INJ IVP ×2 (11:26→18:27)
--- NOTE | 2020-11-22 12:47 | ANE.PACU2 ---
Inpatient post-anesthesia follow up: Airway intact: Yes Vital signs: Temperature 98.7 F Pulse Rate 83 Respiratory Rate 16 Blood Pressure 100/57 Pulse Oximetry 99 Oxygen Delivery Me thod Room Air Oxygen Flow Rate Fraction of Inspir ed Oxygen Hydration adequate: Yes Nausea and vomiting: No Pain level: 2 Mental status: Baseline
[2020-11-22] MEDS: dextrose 5%-lactated ringers 1,000 ML 125 ML IV ×2 (13:04→21:18)
[2020-11-22] MEDS: HYDROcodone-acetaminophen 5-325 mg Tablet PO ×3 (13:26→22:53)
[2020-11-22] MEDS: ferrous sulfate EC 325 mg Tablet PO (18:27)
[2020-11-22] MEDS: docusate sodium 100 mg Capsule PO (18:27)
--- NOTE | 2020-11-22 22:55 | PC.NURSE ---
pt states her pain is an 8/10 but only wants to take one pain pill.
--- NOTE | 2020-11-23 00:24 | PC.NURSE ---
pt incision dressing intact. pt asked about a shower, this nurse told pt she would need to wait 24 hours for the bandage to come off.
--- NOTE | 2020-11-23 00:26 | PC.NURSE ---
pt becoming more tender and sore throughout the night.
[2020-11-23] MEDS: ketorolac 30 mg/mL INJ IVP (00:39)
[2020-11-23 02:30] VITALS: BP 115/74; PULSE 88; RESP 15; TEMP 36.9; O2SAT 98
[2020-11-23 03:02] LABS: Hematocrit 26.2 % (37.0-47.0); Hemoglobin 8.2 g/dL (11.5-15.3); Mean Corpuscular HGB Conc 31.3 g/dL (30.0-36.0); Mean Corpuscular Hemoglobin 27.5 pg (28.0-34.0); Mean Corpuscular Volume 87.9 fL (81-99); Mean Platelet Volume 10.7 fL (7.4-10.4); Platelet Count 158 10^3/cmm (130-400); Red Blood Count 2.98 10^6/uL (4.1-5.3); Red Cell Distribution Width 13.5 % (12.1-15.1); White Blood Count 8.9 10^3/uL (4.0-10.0)
[2020-11-23] MEDS: HYDROcodone-acetaminophen 5-325 mg Tablet PO ×3 (03:19→12:10)
--- NOTE | 2020-11-23 06:46 | PM.OBGYDC ---
Discharge Providers ASSEMBLER CARDS AND ANNOUNCEMENTS Date of Admission: 11/22/20 05:25 Date of Discharge: 11/23/20 Attending Provider at Admission: Hao Hicks MD Attending Provider at Discharge: Hao Hicks MD Diagnoses at Discharge Discharge Diagnosis (1) Sterilization consult: Status: Acute (2) History of : Status: Acute (3) 39 weeks gestation of : Status: Acute Reason for Visit Reason for Visit: IUP Hospital Course Hospital Course The patient presented to the hospital for a repeat section and a bilateral tubal ligation. The procedure was unremarkable. The patient's course was excellent. She was passing flatus the same day of the surgery. She was eating without difficulty. Her bleeding was better than average. Her pain was well controlled. She is bottlefeeding well. There are no concerns. Information Peripartum Data: Infant Delivery Method: Physical Exam Narrative: EXAM NARRATIVE: She is in no acute distress Lungs are clear auscultation bilaterally Her heart has a regular rate and rhythm Her fundus is below the umbilicus and firm Her dressing is clean, dry and intact Her extremities have trace edema Urinary Catheter Management^: Rios Latex: Cath Placed During This Visit: yes, but has since been removed by the nurse Reason for Continuing Indwelling Catheter: Perioperative Use in Selected Surgeries Urinary Catheter Date of Insertion: 11/22/20 Urinary Catheter Time of Insertion: 07:00 Date Urinary Catheter Removed: 11/22/20 Time Urinary Catheter Discontinued: 23:00 Discharge Data Data Completed and Pending: Pending at discharge Category Date Time Status Pathology: Surgic al [PTH] Routine Pth 11/22/20 12:28 Received Labs from last 24 hours 11/23/20 11/22/20 02:55 05:48 WBC 8.9 7.4 RBC 2.98 L 3.82 L Hgb 8.2 L 10.4 L Hct 26.2 L 33.6 L MCV 87.9 88.0 MCH 27.5 L 27.2 L MCHC 31.3 31.0 RDW 13.5 13.6 Plt Count 158 222 MPV 10.7 H 11.7 H Neut % (Auto) 65.4 Lymph % (Auto) 21.6 [place] % (Auto) 10.3 Eos % (Auto) 1.5 Baso % (Auto) 0.4 Neut # (Auto) 4.80 Lymph # (Auto) 1.6 [place] # (Auto) 0.8 Eos # (Auto) 0.1 Baso # (Auto) 0.0 Nucleated RBC % (a uto) 0 Nucleated RBCs # 0.0 Vitals: Last Vital Signs Temp 98.4 F 11/23/20 02:30 Pulse 88 11/23/20 02:30 Resp 15 11/23/20 02:30 BP 115/74 11/23/20 02:30 Pulse Ox 98 11/23/20 02:30 Discharge Plan Discharge Patient Disposition: Home Condition: Stable Prescriptions: New ibuprofen 800 mg Tablet 800 mg PO TID Qty: 45 RF: 0 hydrocodone-acetaminophen 5-325 mg Tablet 1 tab PO Q4H PRN (Reason: Moderate To Severe Pain) Qty: 28 RF: 0 Continued diphenhydramine HCl [Benadryl] 25 mg Capsule 25 mg PO BEDTIME PRN (Reason: Sleep) RF: 0 ferrous sulfate [iron] 325 mg (65 mg iron) Tablet 325 mg PO DAILY RF: 0 mcplktxs-gtl-Aw-FA 1 mg Tablet 1 tab PO RF: 0 acetaminophen 500 mg Capsule 1,000 mg PO PRN PRN (Reason: Pain) RF: 0 Discharge Orders: Discharge Order (Routine); Ordered 11/23/20 Ordered By: Hao Hicks Referrals: Yovany Tirado MD [Physician] - 7-10 days (For staple removal and steri placement. Also set up for 6 week check) Hao Hicks MD [Physician] - Discharge Diet: Usual diet Discharge Activity: Limit activity as instructed Patient Instructions: Opioid Safety Discharge Attestations ASSEMBLER CARDS AND ANNOUNCEMENTS Time Spent in Discharge Care*: less than 30 min Specific Discharge Activities: Specific discharge activities: educating patient Coding Level of Care Code Acute Train Control Technician for Chg Fwd Diagnoses Sterilization consult Z30.09 History of Z98.891 39 weeks gestation of Z3A.39
[2020-11-23 06:47] VITALS: BP 121/78; PULSE 88; PULSE 97; RESP 17; TEMP 36.8; TEMP 37; O2SAT 98
[2020-11-23] MEDS: prenatal vitamin Capsule 1 CAP PO (10:39)
[2020-11-23] MEDS: ibuprofen 800 mg tablet PO (10:39)
[2020-11-23] MEDS: docusate sodium 100 mg Capsule PO (10:39)
[2020-11-23] MEDS: ferrous sulfate EC 325 mg Tablet PO (10:39)
[2020-11-23 11:00] VITALS: BP 116/77; PULSE 92; RESP 16; TEMP 36.8; O2SAT 96
[2020-11-23 13:55] VITALS: BP 123/86; PULSE 96; RESP 17; TEMP 36.6; O2SAT 96
== END 2020-11-23 13:55 | disposition home or self-care (01) | DRG 785 ==
PROVIDERS: Admitting Provider Family Medicine; Visit Provider Family Medicine
PROC: 10D00Z1 Extraction of Products of Conception, Low, Open Approach (ICD-10-PCS; CPT 59514; principal; 2020-11-22 07:00)
DX: O34.211 Maternal care for low transverse scar from previous cesarean delivery (principal); Z3A.39 39 weeks gestation of pregnancy; Z37.0 Single live birth; Z30.2 Encounter for sterilization
CPT/HCPCS: 12345; 36415; 51702; 58611; 59025; 59409; 85025; 85027; 88302; 96374; 96375; J1580; J1885; J2175; J2274; J2370; J2405; J2765; J3490

== ENCOUNTER 2021-01-10 07:00 | Outpatient (CLI) | payer OTHER, SELFPAY ==
[2021-01-10 07:28] VITALS: BMI 28.3
[2021-01-10 07:33] VITALS: BP 111/77; PULSE 74; RESP 14; TEMP 36.5; O2SAT 98
[2021-01-10 08:20] VITALS: BP 107/76; PULSE 88; RESP 16; O2SAT 99
[2021-01-10 09:07] VITALS: BP 109/77; PULSE 84; RESP 16; TEMP 36.7; O2SAT 98
== END 2021-01-10 09:08 | disposition home or self-care (01) ==
PROVIDERS: PCP Physician Assistant; Visit Provider Physician Assistant
DX: U07.1 COVID-19 (principal)
CPT/HCPCS: 96365

== ENCOUNTER → 2023-03-14 10:53 | Outpatient (BNVA) | payer SELFPAY | PROVIDERS: PCP Physician Assistant; Visit Provider Emergency Medicine | DX: R39.9 Unspecified symptoms and signs involving the genitourinary system (principal) | CPT/HCPCS: 81000 ==

== ENCOUNTER 2023-07-11 20:01 | Emergency (ER) | payer SELFPAY ==
[2023-07-11 20:41] VITALS: BP 135/75; PULSE 110; RESP 18; TEMP 38.3; O2SAT 100; BMI 26.0
[2023-07-11 20:47] LABS: Basophils % 0.3 %; Hematocrit 38.1 % (36-47); Lymphocytes # 0.2 10^3/uL (0.8-4.8); Lymphocytes % 3.8 %; Mean Corpuscular HGB Conc 32.5 g/dL (30-55); Mean Corpuscular Hemoglobin 29.8 pg (27-33); Mean Corpuscular Volume 91.6 fl (85-98); Mean Platelet Volume 9.1 fL (7.4-10.4); Monocytes # 0.7 10^3/uL (0.2-0.9); Monocytes % 11.3 %; Neutrophils # 5.16 10^3/uL (1.8-7.7); Neutrophils % 84.4 %; Nucleated Red Blood Cells % 0 %; Platelet Count 293 10^3/cmm (157-399); Red Blood Count 4.16 10^6/uL (3.85-5.65); Red Cell Distribution Width 12.2 % (12.1-15.1); White Blood Count 6.11 10^3/uL (3.29-11.43)
[2023-07-11 21:13] LABS: Alanine Aminotransferase 13 U/L (0-33); Albumin Level 4.9 g/dL (3.5-5.2); Alkaline Phosphatase 44 U/L (35-105); Anion Gap 18.8 (5-19); Aspartate Amino Transferase 15 U/L (0-32); Blood Urea Nitrogen 10 mg/dL (6-20); Calcium 9.3 mg/dL (8.5-10.5); Carbon Dioxide 21 mmol/L (22-29); Chloride 102 mmol/L (98-107); Creatinine Clr Calc Pharmacy 126.9165; Globulin 3.2 g/dL (1.3-4.6); Glomerular Filtration Rate 118.2 mL/min (90-130); Glucose 101 mg/dL (65-115); Lipase 15 U/L (13-60); Osmolality Calculated 285 mOsm/kg (285-295); Potassium 3.8 mmol/L (3.5-5.1); Sodium 138 mmol/L (136-145); Total Bilirubin 0.6 mg/dL (0.15-1.2); Total Protein 8.1 g/dL (6.6-8.7)
[2023-07-11 21:14] VITALS: BP 119/91; PULSE 104; RESP 16; TEMP 37.8; O2SAT 99
[2023-07-11 21:21] LABS: Add Urine Microscopic? NO; Charge for UA Resulting for Rev
--- NOTE | 2023-07-11 21:21 | CTR_ITS ---
PROCEDURE INFORMATION: Exam: CT Abdomen And Pelvis With Contrast Exam date and time: 07/11/2023 10:26 PM Age: 28 years old Clinical indication: Abdominal pain; Generalized; Prior surgery; Surgery date: 6+ months; Surgery type: Appy when she was 11; Additional info: N/v/d, fever TECHNIQUE: Imaging protocol: Computed tomography of the abdomen and pelvis with contrast. Radiation optimization: All CT scans at this facility use at least one of these dose optimization techniques: automated exposure control; mA and/or kV adjustment per patient size (includes targeted exams where dose is matched to clinical indication); or iterative reconstruction. Contrast material: OMNI 350; Contrast volume: 100 ml; Contrast route: INTRAVENOUS (IV); COMPARISON: US OB >= 14 weeks fetus [id number] 09/13/2020 8:36 AM RADIATION DOSE METRICS: Total DLP (mGy-cm): 435 FINDINGS: Liver: Hepatic steatosis. Gallbladder and bile ducts: Cholelithiasis. Pancreas: Normal. No ductal dilation. Spleen: Normal. No splenomegaly. Adrenal glands: Normal. No mass. Kidneys and ureters: Left kidney cyst, negative for follow up. Stomach and bowel: Prominent fluid the small bowel and portions of the colon may reflect an enterocolitis. Appendix: No evidence of appendicitis. Intraperitoneal space: Unremarkable. No free air. No significant fluid collection. Vasculature: Unremarkable. No abdominal aortic aneurysm. Lymph nodes: Unremarkable. No enlarged lymph nodes. Urinary bladder: Unremarkable as visualized. Reproductive: Tampon in the vaginal vault. Bones/joints: Unremarkable. No acute fracture. Soft tissues: Unremarkable. CT/CT abdomen pelvis w con* [id number] IMPRESSION: 1. Prominent fluid the small bowel and portions of the colon may reflect an enterocolitis. 2. Hepatic steatosis. 3. Cholelithiasis. 4. Left kidney cyst, negative for follow up. 5. Tampon in the vaginal vault.
--- NOTE | 2023-07-11 21:22 | ED_ITS ---
HPI - Abdominal Pain 2 General: Chief Complaint: Abdominal Pain Stated Complaint: Abd pain Time Seen by Provider: 07/11/23 21:19 History of Present Illness: 28-year-old female comes in today for co mplaints of midepigastric abdominal pain along with nausea and diarrhea for the last 3 to 4 days. Patient also reports heavier than normal menstrual cycle. Patient has a history of appendectomy, malrotation of the intestines, and TNA surgeries. Patient has a history of gallstones, patient appears in mild to moderate pain. Patient appears nontoxic. Associated Symptoms: Reports diarrhea and nausea Review of Systems 2 General: Reports: 10 or more systems reviewed and unremarkable except in HPI and below GI: Reports: abdominal pain, nausea and diarrhea PFSH ED 2 PFSH: Social History Smoking and tobacco/nicotine status: never used tobacco/nicotine Alcohol intake: current Alcohol intake frequency: holidays/special occasions only Substance/Drug Use: never Physical Exam 2 Const: COMMON NORMALS: alert HENMT: COMMON NORMALS: normocephalic HEAD & SCALP: normocephalic Neck/C-Spine: COMMON NORMALS: full ROM Resp: COMMON NORMALS: normal respiratory effort and clear to auscultation bilaterally AUSCULTATION: clear to auscultation bilaterally Cardio: COMMON NORMALS: regular rate and regular rhythm RATE: regular rate RHYTHM: regular rhythm GI: COMMON NORMALS: Soft to palpation AUSCULTATION: Yes normoactive bowel sounds PALPATION: Yes Soft to palpation and Yes Tenderness to palpation present (GI) (Generalized) : COMMON NORMALS: Yes no CVA tenderness BLADDER/KIDNEY EXAM: Yes no CVA tenderness Back/Pelvis: COMMON NORMALS: no CVA tenderness Extremity: COMMON NORMALS: normal to inspection Neuro: SENSORIUM/ORIENTATION: Yes alert Skin: COMMON NORMALS: turgor normal GENERAL SKIN EXAM: turgor normal Course 2 Vital Signs: Vital signs: Vital Signs Temperature 100.0 F H 07/11/23 21:14 Pulse Rate 104 H 07/11/23 21:14 Respiratory Rate 16 07/11/23 21:14 Blood Pressure 119/91 07/11/23 21:14 Pulse Oximetry 99 07/11/23 21:14 MDM - Abdominal Pain Medical Decision Making Patient comes in today with left lower abdominal pain starting this morning. Patient also has had some fever. 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 Patient has a history of gallstones. Patient appears in mild pain. Patient is febrile. Differential diagnosis includes not limited to diverticulitis, colitis, gallbladder disease, renal calculi. Urinalysis was unremarkable. CBC and CMP were normal. Patient CT noted enterocolitis. Will treat patient with Cipro and prednisone with recommendations for follow-up with surgeon for colonoscopy for further evaluation of colitis to rule out ulcerative colitis or Crohn's. Patient reported understanding of care plan and need for follow-up or return to the ER. Lab Data 07/11/23 20:40 07/11/23 20:40 Labs/Radiology: Radiology Impressions Abdomen/Pelvis CT 07/11/23 21:21 IMPRESSION: 1. Prominent fluid the small bowel and portions of the colon may reflect an enterocolitis. 2. Hepatic steatosis. 3. Cholelithiasis. 4. Left kidney cyst, negative for follow up. 5. Tampon in the vaginal vault. Laboratory Results WBC 6.11 10^3/uL (3.29-11.43) 07/11/23 20:40 RBC 4.16 10^6/uL (3.85-5.65) 07/11/23 20:40 Hgb 12.40 g/dL (11.27-16.99) 07/11/23 20:40 Hct 38.1 % (36-47) 07/11/23 20:40 MCV 91.6 fl (85-98) 07/11/23 20:40 MCH 29.8 pg (27-33) 07/11/23 20:40 MCHC 32.5 g/dL (30-55) 07/11/23 20:40 RDW 12.2 % (12.1-15.1) 07/11/23 20:40 Plt Count 293 10^3/cmm (157-399) 07/11/23 20:40 MPV 9.1 fL (7.4-10.4) 07/11/23 20:40 Neut % (Auto) 84.4 % 07/11/23 20:40 Lymph % (Auto) 3.8 % 07/11/23 20:40 [place] % (Auto) 11.3 % 07/11/23 20:40 Eos % (Auto) 0.0 % 07/11/23 20:40 Baso % (Auto) 0.3 % 07/11/23 20:40 Neut # (Auto) 5.16 10^3/uL (1.8-7.7) 07/11/23 20:40 Lymph # (Auto) 0.2 10^3/uL (0.8-4.8) L 07/11/23 20:40 [place] # (Auto) 0.7 10^3/uL (0.2-0.9) 07/11/23 20:40 Eos # (Auto) 0.0 10^3/uL (0.0-0.8) 07/11/23 20:40 Baso # (Auto) 0.0 10^3/uL (0.0-0.1) 07/11/23 20:40 Nucleated RBC % (auto) 0 % 07/11/23 20:40 Nucleated RBCs # 0.0 /100WBC 07/11/23 20:40 Sodium 138 mmol/L (136-145) 07/11/23 20:40 Potassium 3.8 mmol/L (3.5-5.1) 07/11/23 20:40 Chloride 102 mmol/L (98-107) 07/11/23 20:40 Carbon Dioxide 21 mmol/L (22-29) L 07/11/23 20:40 Anion Gap 18.8 (5-19) 07/11/23 20:40 BUN 10 mg/dL (6-20) 07/11/23 20:40 Creatinine 0.6 mg/dL (0.5-0.9) 07/11/23 20:40 GFR Calculation 118.2 mL/min (90-130) 07/11/23 20:40 Glucose 101 mg/dL (65-115) 07/11/23 20:40 Calculated Osmolality 285 mOsm/kg (285-295) 07/11/23 20:40 Calcium 9.3 mg/dL (8.5-10.5) 07/11/23 20:40 Total Bilirubin 0.6 mg/dL (0.15-1.2) 07/11/23 20:40 AST 15 U/L (0-32) 07/11/23 20:40 ALT 13 U/L (0-33) 07/11/23 20:40 Alkaline Phosphatase 44 U/L (35-105) 07/11/23 20:40 Total Protein 8.1 g/dL (6.6-8.7) 07/11/23 20:40 Albumin 4.9 g/dL (3.5-5.2) 07/11/23 20:40 Globulin 3.2 g/dL (1.3-4.6) 07/11/23 20:40 Lipase 15 U/L (13-60) 07/11/23 20:40 HCG, Qual Negative (Negative) 07/11/23 21:06 Urine Color Yellow (Yellow) 07/11/23 21:06 Urine Appearance Clear (CLEAR) 07/11/23 21:06 Urine pH 5 (5-7) 07/11/23 21:06 Ur Specific [place] 1.025 (1.005-1.030) 07/11/23 21:06 Urine Protein Neg (Negative) 07/11/23 21:06 Urine Glucose (UA) Norm (Normal) 07/11/23 21:06 Urine Ketones 2+ (Negative) H 07/11/23 21:06 Urine Blood Neg (Negative) 07/11/23 21:06 Urine Nitrate Negative (Negative) 07/11/23 21:06 Urine Bilirubin Neg (Negative) 07/11/23 21:06 Urine Urobilinogen Norm mg/dL (Negative) 07/11/23 21:06 Ur Leukocyte Esterase Negative (Negative) 07/11/23 21:06 All radiology interpretation(s) finalized by discharge Discharge Plan Discharge Patient Disposition: Home Clinical Impression: Enterocolitis Condition: Stable Prescriptions: New prednisone 20 mg tablet 20 mg PO BID 5 Days Qty: 10 0RF Cipro 500 mg tablet 500 mg PO BID Qty: 10 0RF hydrocodone-acetaminophen 5-325 mg tablet 1 tab PO Q8H PRN (Reason: pain) Qty: 7 0RF ondansetron 4 mg tablet,disintegrating 4 mg PO Q8H PRN (Reason: nausea and vomiting) Qty: 10 0RF Discharge Orders: Discharge ED (Routine); Ordered 07/11/23 Ordered By: Nikita Pacheco Referrals: Anabella Rascon PA [Primary Care Provider] - Discharge Diet: Advance as tolerated Discharge Activity: Increase activity as tolerated Patient Instructions: Ulcerative Colitis (ED) Activity Restrictions/Additional Instructions: Drink plenty water and fluids. Stay on a clear liquid diet until pain resolves or improves. Then increase diet to a full liquid then bland diet. Take medications as directed. Follow-up with surgeon for further evaluation and treatment. You may need to have a colonoscopy further diagnosis. Coding Level of Care Code ED Sweeper Driver for Teresa Monreal
[2023-07-11 21:23] LABS: Bilirubin Urine Neg (Negative); Blood Urine Neg (Negative); Glucose Urine UA Norm (Normal); HCG Qualitative Urine. Negative (Negative); Ketones Urine 2+ (Negative); Leukocyte Esterase Urine Negative (Negative); Nitrate Urine Negative (Negative); Protein Urine Neg (Negative); Specific Gravity, Urine 1.025 (1.005-1.030); Urine Appearance Clear (CLEAR); Urine Color Yellow (Yellow); Urobilinogen Urine Norm (Negative); pH Urine 5 (5-7)
[2023-07-11 22:00] VITALS: PULSE 101; RESP 16; O2SAT 100
[2023-07-11] MEDS: ondansetron 2 mg/ML SDV 2 mL 4 MG IVP ×2 (22:18→23:46)
[2023-07-11] MEDS: morphine 4 mg/mL SDV 1 mL IVP ×2 (22:18→23:47)
[2023-07-11] MEDS: sodium chloride 0.9% 1,000 ML 999 ML IV (22:18)
[2023-07-11] MEDS: iohexol 350 mg/mL 500 mL Btl (per mL) IV (22:28)
[2023-07-11 23:00] VITALS: PULSE 98; RESP 16; O2SAT 100
[2023-07-11] MEDS: methylPREDNISolone sod succ 125 mg/2 mL INJ IVP (23:47)
[2023-07-11] MEDS: ciprofloxacin 400 MG/200 ML PREMIX 200 MG IV (23:49)
[2023-07-12] VITALS: PULSE 100; RESP 16; O2SAT 100
--- NOTE | 2023-07-12 00:27 | DCPLANNER ---
Message sent to General surgery to follow up with patient for ulcerative colitis
[2023-07-12 00:36] VITALS: BP 113/75; PULSE 99; RESP 18; O2SAT 99
== END 2023-07-12 00:50 | disposition home or self-care (01) ==
PROVIDERS: Internal Medicine; Emergency Provider Nurse Practitioner Family; PCP Physician Assistant
DX: K52.9 Noninfective gastroenteritis and colitis, unspecified (principal)
CPT/HCPCS: 36415; 74177; 80053; 81003; 81025; 83690; 85025; 96361; 96365; 96375; 96376; 99285; J0744; J2270; J2405; J2930; J7030; Q9967

== ENCOUNTER 2024-03-26 19:42 | Observation (INO) | payer SELFPAY ==
[2024-03-26 19:47] VITALS: BP 136/87; PULSE 127; TEMP 36.8; O2SAT 100; BMI 23.0
[2024-03-26 20:55] LABS: HCG, Serum Qual Positive (Negative)
[2024-03-26 21:03] LABS: Alanine Aminotransferase 18 U/L (0-33); Albumin Level 4.8 g/dL (3.5-5.2); Alkaline Phosphatase 53 U/L (35-105); Blood Urea Nitrogen 12 mg/dL (6-20); Calcium 9.2 mg/dL (8.5-10.5); Carbon Dioxide 21 mmol/L (22-29); Chloride 102 mmol/L (98-107); Globulin 3.1 g/dL (1.3-4.6); Glomerular Filtration Rate 188.7 mL/min (90-130); Glucose 91 mg/dL (65-115); Lipase 20 U/L (13-60); Osmolality Calculated 287 mOsm/kg (285-295); Sodium 139 mmol/L (136-145); Total Bilirubin 0.9 mg/dL (0.15-1.2); Total Protein 7.9 g/dL (6.6-8.7)
[2024-03-26 21:04] LABS: Anion Gap 19.8 (5-19); Aspartate Amino Transferase 16 U/L (0-32); Creatinine Clr Calc Pharmacy 180.2701; Potassium 3.8 mmol/L (3.5-5.1)
--- NOTE | 2024-03-26 21:06 | USR_ITS ---
PROCEDURE INFORMATION: Exam: US , Transvaginal Exam date and time: 03/26/2024 9:43 PM Age: 28 years old Clinical indication: complicated by abdominal or pelvic pain; Right lower quadrant; First trimester (<14 weeks 0 days); Gestational age or lmp: Can not see pole; ; Additional info: Positive preg; HX of tubal LABS AND CLINICAL REPORTS: Last menstrual period start date: Unknown TECHNIQUE: Imaging protocol: Real-time transvaginal obstetrical ultrasound of the maternal pelvis with image documentation. Transvaginal imaging was used for better evaluation of the fetus, adnexa, and/or cervix. COMPARISON: US OB >= 14 weeks fetus [id number] 09/13/2020 8:36 AM FINDINGS: No intrauterine . The endometrial thickness is 0.4 cm. There is questionable right adnexal ectopic . The right adnexa measures approximately 2.7 x 2.3 cm and is heterogeneous. There is some associated vascularity. The left ovary measures 3.1 x 2.4 x 2.2 cm. There is a small amount of free fluid in the pelvis. US/US OB transvaginal [id number] IMPRESSION: Findings are suspicious for right adnexal ectopic .Clinical correlation is advised. THIS REPORT CONTAINS FINDINGS THAT MAY BE CRITICAL TO PATIENT CARE. The findings were verbally communicated via telephone conference with Dr Sweet at 11:39 PM SUPERVISOR RESIDENTIAL on 03/26/2024. The findings were acknowledged and understood.
--- NOTE | 2024-03-26 21:46 | W.ED.ABDPA2 ---
HPI - Abdominal Pain General: Chief Complaint: Abdominal Pain Stated Complaint: pelvic pressure and pain, Vomitting Time Seen by Provider: 03/26/24 21:06 Source: patient Mode of arrival: ambulatory Limitations: no limitations History of Present Illness: Patient is a 28-year-old female presents to ED today with a complaint of lower pelvic pain mainly to her right side. She states she has been having pain over the past 4 days with pain acutely worsening prior to arrival today. She is not having any vaginal bleeding. She feels like there is so much pressure. Feels like pain is radiating to her back. She has had a history of a tubal ligation. She feels nauseous secondary to the pain. She has not had any episodes of vomiting or changes in her bowel movements. No urinary symptoms. No fevers. Upon my initial assessment of patient she appears uncomfortable. MD elicited complaint: abdominal pain and other (pelvic pain) Pertinent past history: other (tubal ligation) Onset (ago): day(s) Pain Consistency: constant Location: Pelvis Severity: severe Quality: sharp Radiation: back Migration to: no migration Exacerbating factors: nothing Relieving factors: nothing Associated Symptoms: Reports no associated symptoms and nausea; Denies change in bowel habits, chills, diarrhea, dysuria, fever(s) and vomiting Related Data Home Medications Medication Instructions Recorded Confirmed cranberry fruit concentrate 250 mg 250 mg PO TID PRN 07/22/23 12/06/23 chewable tablet (Azo Cranberry) Previous Rx's Medication Instructions Recorded hydrocodone 5 mg-acetaminophen 325 1 tab PO Q8H PRN pain #7 tabs 07/11/23 mg tablet ondansetron 4 mg disintegrating 4 mg PO Q8H PRN nausea and 07/11/23 tablet vomiting #10 tabs pantoprazole 40 mg tablet,delayed 40 mg PO BID 90 days #180 tabs 07/22/23 release (Protonix) sucralfate 1 gram tablet 1 g PO BID 4 weeks #56 tabs 07/22/23 Allergies Allergy/AdvReac Type Severity Reaction Status Date / Time amoxicillin Allergy ALGY-Difficulty Verified 03/26/24 19:53 Breathing Penicillins Allergy ALGY-Difficulty Verified 03/26/24 19:53 Breathing prednisone Allergy suicidal Verified 03/26/24 19:53 thoughts farzad Allergy super Uncoded 03/26/24 19:53 inflammed skin Review of Systems Const: Denies: fever(s), chills, body aches, fatigue or malaise Card: Denies: chest pain Resp: Denies: dyspnea GI: Reports: abdominal pain and nausea; Denies: vomiting, diarrhea or change in bowel habits : Reports: pelvic pain; Denies: flank pain, difficulty voiding, dysuria, urinary frequency, urinary urgency or urinary hesitancy Musc: Reports: back pain; Denies: neck pain, extremity pain, extremity swelling, joint pain or joint swelling Skin/Breast: Denies: rash Neuro: Denies: headache(s), numbness in extremities, weakness in extremities, sensory changes or dizziness PFSH ED PFSH: Medical History delivery delivered Malrotation of intestine Surgical History History of appendectomy Hx of tonsillectomy H/O adenoidectomy History of rhinoplasty History of intestinal surgery Had knot removed in [place] -age 11 Social History Smoking and tobacco/nicotine status: unknown if used tobacco/nicotine Alcohol intake: current Alcohol intake frequency: holidays/special occasions only Substance/Drug Use: never Physical Exam Const: COMMON NORMALS: average body habitus, patient oriented x3, no limitations, healthy appearing, alert and well nourished GENERAL APPEARANCE: cooperative and in distress ORIENTATION/CONSCIOUSNESS: Yes awake, Yes oriented to person, Yes oriented to place and Yes oriented to time Resp: COMMON NORMALS: normal respiratory effort and clear to auscultation bilaterally AUSCULTATION: clear to auscultation bilaterally Cardio: COMMON NORMALS: regular rhythm RATE: tachycardic RHYTHM: regular rhythm GI: COMMON NORMALS: Normal to inspection, nondistended, normoactive bowel sounds present INSPECTION: Yes normal to inspection PALPATION: Yes Tenderness to palpation present (GI) (lower pelvis, R lower pelvis) and Yes Guarding due to palpation present (GI) : COMMON NORMALS: Yes no CVA tenderness BLADDER/KIDNEY EXAM: Yes no CVA tenderness Back/Pelvis: COMMON NORMALS: no CVA tenderness and thoracic and lumbar spine normal to inspection Extremity: GENERAL: Yes normal exam except as noted Neuro: COMMON NORMALS: patient oriented x3, moves all extremities, no focal motor deficits, no sensory deficits noted and gait normal SENSORIUM/ORIENTATION: Yes alert, Yes oriented to person, Yes oriented to place and Yes oriented to time Course Consultations: Consultation #1: Dr. Morrow-coming to ED to evaluate patient and take to OR Vital Signs: Vital signs: Vital Signs Temperature 98.3 F 03/26/24 19:47 Pulse Rate 86 03/26/24 22:01 Respiratory Rate 20 H 03/26/24 22:01 Blood Pressure 129/81 03/26/24 22:01 Pulse Oximetry 100 03/26/24 22:01 Oxygen Delivery Me thod Room Air 03/26/24 19:47 MDM - Abdominal Pain Medical Decision Making Ultrasound was ordered from waiting room as soon as I saw patient had a positive test. Nursing staff was alerted to room patient immediately due to suspicion for ectopic. During my initial assessment of patient ultrasound was meeting me in the room and immediately scanned her. I checked in with control room technician during her scan who alerted me that she does have an ectopic . I immediately contacted Dr. Morrow who will come and evaluate patient. Her serum quant is roughly 1300. She was tachycardic in triage but repeat set of vitals are stable. Hemoglobin is 10.5. Patient will be typed and screened. She was given IV fluids. Dr. Morrow will be taking to the OR. Dr. Sweet was immediately made aware of patient and agrees with her care plan here in the emergency department. Medical Records I reviewed the patient's medical records. Lab Data I reviewed the patient's lab results. 03/26/24 21:33 03/26/24 20:37 Labs/Radiology: Laboratory Results WBC 4.27 10^3/uL (3.29-11.43) 03/26/24 21:33 Corrected WBC Cancelled 03/26/24 20:37 RBC 3.50 10^6/uL (3.85-5.65) L 03/26/24 21:33 Hgb 10.50 g/dL (11.27-16.99) L 03/26/24 21:33 Hct 32.6 % (36-47) L 03/26/24 21:33 MCV 93.1 fl (85-98) 03/26/24 21:33 MCH 30.0 pg (27-33) 03/26/24 21: MCHC 32.2 g/dL (30-55) 03/26/24 21:33 RDW 11.9 % (12.1-15.1) L 03/26/24 21:33 Plt Count 251 10^3/cmm (157-399) 03/26/24 21:33 MPV 9.0 fL (7.4-10.4) 03/26/24 21:33 Gran % Cancelled 03/26/24 20:37 Neut % (Auto) 69.1 % 03/26/24 21: Lymph % (Auto) 17.6 % 03/26/24 21: Guadalupe % (Auto) 11.5 % 03/26/24 21: Eos % (Auto) 1.4 % 03/26/24 21: Baso % (Auto) 0.2 % 03/26/24 21: Neut # (Auto) 2.95 10^3/uL (1.8-7.7) 03/26/24 21: Lymph # (Auto) 0.8 10^3/uL (0.8-4.8) 03/26/24 21:33 Guadalupe # (Auto) 0.5 10^3/uL (0.2-0.9) 03/26/24 21: Eos # (Auto) 0.1 10^3/uL (0.0-0.8) 03/26/24 21: Baso # (Auto) 0.0 10^3/uL (0.0-0.1) 03/26/24 21:33 Absolute Gran (auto) Cancelled 03/26/24 20:37 Nucleated RBC % (auto) 0 % 03/26/24 21: Nucleated RBCs # 0.0 /100WBC 03/26/24 21:33 Sodium 139 mmol/L (136-145) 03/26/24 20:37 Potassium 3.8 mmol/L (3.5-5.1) 03/26/24 20:37 Chloride 102 mmol/L (98-107) 03/26/24 20:37 Carbon Dioxide 21 mmol/L (22-29) L 03/26/24 20:37 Anion Gap 19.8 (5-19) H 03/26/24 20:37 BUN 12 mg/dL (6-20) 03/26/24 20:37 Creatinine 0.4 mg/dL (0.5-0.9) L 03/26/24 20:37 GFR Calculation 188.7 mL/min (90-130) H 03/26/24 20:37 Glucose 91 mg/dL (65-115) 03/26/24 20:37 Calculated Osmolality 287 mOsm/kg (285-295) 03/26/24 20:37 Calcium 9.2 mg/dL (8.5-10.5) 03/26/24 20:37 Total Bilirubin 0.9 mg/dL (0.15-1.2) 03/26/24 20:37 AST 16 U/L (0-32) 03/26/24 20:37 ALT 18 U/L (0-33) 03/26/24 20:37 Alkaline Phosphatase 53 U/L (35-105) 03/26/24 20:37 Total Protein 7.9 g/dL (6.6-8.7) 03/26/24 20:37 Albumin 4.8 g/dL (3.5-5.2) 03/26/24 20:37 Globulin 3.1 g/dL (1.3-4.6) 03/26/24 20:37 Lipase 20 U/L (13-60) 03/26/24 20:37 HCG, Qual Positive (Negative) H 03/26/24 20:37 Ser , Semi-Qnt 1316.00 mIU/mL 03/26/24 20:37 XR interpretation done by ED provider, pending radiology final review (per Zander Romero, tech-ectopic preg with free fluid ) Discharge Plan Discharge Clinical Impression: Ruptured right tubal ectopic causing hemoperitoneum Condition: Stable Coding Level of Care Code ED Intelligence Operations Specialist for Teresa Monreal
[2024-03-26 21:56] LABS: Basophils % 0.2 %; Eosinophils # 0.1 10^3/uL (0.0-0.8); Eosinophils % 1.4 %; Hematocrit 32.6 % (36-47); Lymphocytes # 0.8 10^3/uL (0.8-4.8); Lymphocytes % 17.6 %; Mean Corpuscular HGB Conc 32.2 g/dL (30-55); Mean Corpuscular Volume 93.1 fl (85-98); Monocytes # 0.5 10^3/uL (0.2-0.9); Monocytes % 11.5 %; Neutrophils # 2.95 10^3/uL (1.8-7.7); Neutrophils % 69.1 %; Nucleated Red Blood Cells % 0 %; Platelet Count 251 10^3/cmm (157-399); Red Cell Distribution Width 11.9 % (12.1-15.1); White Blood Count 4.27 10^3/uL (3.29-11.43)
[2024-03-26 22:01] VITALS: BP 129/81; PULSE 86; RESP 20; O2SAT 100
[2024-03-26] MEDS: ondansetron 2 mg/ML SDV 2 mL 4 MG IVP (22:18)
[2024-03-26] MEDS: morphine 4 mg/mL SDV 1 mL IVP (22:19)
[2024-03-26 23:00] VITALS: BP 131/72; PULSE 86; RESP 18; O2SAT 97
--- NOTE | 2024-03-26 23:08 | PM.OBGYHP ---
Providers/Chief Complaint Admitting Physician: Gallo Morrow MD Primary HAIRMASTERS MANAGER: Gallo Morrow MD Chief Complaint: pelvic pressure and pain, Vomitting HPI HAIRMASTERS MANAGER History of Present Illness Haylie Salvador is a 28 year old female h/o c-sections x two h/o BTL with the last presented to ER c/o lower abdominal pain x several days progressed to acute severe right lower quadrant pain this evening + nausea, no vomiting No fever, chills, dysuria PMHx: none PSHx: bowel surgery at age 11 for intestinal malrotation c-sections x two was told at time of c-sections she had scar tissue Present Details Para: 2 Medications/Allergies Home Medications Medication Instructions Recorded Confirmed Last Taken Type hydrocodone 5 mg-acetaminophen 325 1 tab PO Q8H PRN pain #7 tabs 07/11/23 12/06/23 Unknown Rx mg tablet ondansetron 4 mg disintegrating 4 mg PO Q8H PRN nausea and 07/11/23 12/06/23 Unknown Rx tablet vomiting #10 tabs cranberry fruit concentrate 250 mg 250 mg PO TID PRN 07/22/23 12/06/23 Unknown History chewable tablet (Azo Cranberry) pantoprazole 40 mg tablet,delayed 40 mg PO BID 90 days #180 tabs 07/22/23 12/06/23 Unknown Rx release (Protonix) sucralfate 1 gram tablet 1 g PO BID 4 weeks #56 tabs 07/22/23 12/06/23 Unknown Rx Allergies Allergy/AdvReac Type Severity Reaction Status Date / Time amoxicillin Allergy ALGY-Difficulty Verified 03/26/24 19:53 Breathing Penicillins Allergy ALGY-Difficulty Verified 03/26/24 19:53 Breathing prednisone Allergy suicidal Verified 03/26/24 19:53 thoughts farzad Allergy super Uncoded 03/26/24 19:53 inflammed skin PFSH HAIRMASTERS MANAGER PFSH: Medical History delivery delivered Malrotation of intestine Surgical History History of appendectomy Hx of tonsillectomy H/O adenoidectomy History of rhinoplasty History of intestinal surgery Had knot removed in [place] -age 11 Social History Smoking and tobacco/nicotine status: unknown if used tobacco/nicotine Alcohol intake: current Alcohol intake frequency: holidays/special occasions only Substance/Drug Use: never Vitals/I&O/Wt Last Vital Signs Temp 98.3 F 03/26/24 19:47 Pulse 86 03/26/24 23:00 Resp 18 03/26/24 23:00 BP 131/72 03/26/24 23:00 Pulse Ox 97 03/26/24 23:00 O2 Del Method Room Air 03/26/24 19:47 Weight last 48 hrs Weight 130 lb Physical Exam Narrative: Weight 130 lbs; 5?3? VS normal General comfortable, awake, alert Lungs: clear Cor: RRR Abd: soft, nondistended Mild tenderness on palpation lower quadrants No rebound LABS: Hgb 10.5 Serum bhcg 1,316 Pelvic sono right adnexal mass + fluid in cul-de-sac Data 03/26/24 21:33 03/26/24 20:37 Results Labs OB ([facility]): Blood Type Pending 03/26/24 Antibody Screen Pending 03/26/24 Hct 32.6 % (36-47) L 03/26/24 Hgb 10.50 g/dL (11.27-16.99) L 03/26/24 Rho(D) Type Pending 03/26/24 Plt Count 251 10^3/cmm (157-399) 03/26/24 Ser , Semi-Qnt 1316.00 mIU/mL 03/26/24 HCG, Qual Positive (Negative) H 03/26/24 A&P Assessment and plan (1) Ruptured right tubal ectopic causing hemoperitoneum: RLQ pain h/o BTL + serum bhcg Right adnexal mass on pelvic sono Most likely this represents ectopic gestation Patient with previous abdominal / intestinal surgery for malrotation Would recommend exploratory laparotomy with Pfannenstiel approach rather than Laparoscopic approach Discussed with patient procedure of salpingectomy for likely ectopic Patient expressed concern she may get another ectopic on the other side in the future Discussed bilateral salpingectomy Patient wants removal of the other tube as well to prevent any possibility of future ectopic Plan exploratory laparotomy, bilateral salpingectomy Procedures and risks explained Risks include, but not limited to, infection, bleeding, injury to internal organs, anesthesia, Blood transfusions Patient understands and wants to proceed Attestations Medical Necessity Statement*: patient with pelvic pain and h/o BTL, + test, with suspected ectopic gestation Coding Level of Care Code Acute Code for Chg Fwd Diagnoses Ruptured right tubal ectopic causing hemoperitoneum O00.101; K66.1 Time Spent (min) 60
[2024-03-26 23:16] VITALS: BP 131/72; PULSE 92; RESP 15; O2SAT 98
[2024-03-26 23:17] VITALS: BP 131/72; PULSE 95; RESP 18; O2SAT 95
[2024-03-26 23:27] VITALS: BP 131/72; PULSE 95; RESP 18; O2SAT 99
--- NOTE | 2024-03-26 23:30 | P.ANESASSM_ITS ---
Pre-Anesthetic Assessment Height/Weight: Height 1.6 m Weight 58.967 kg Temp Pulse Resp BP Pulse Ox O2 Del Method 98.3 F 95 18 131/72 99 Room Air 03/26/24 19:47 03/26/24 23:27 03/26/24 23:27 03/26/24 23:27 03/26/24 23:27 03/26/24 23:27 Operation Date: 03/26/24 23:30 Proposed Procedures p Laparoscopic Ectopic (Not Applicable) - Gallo Morrow MD Familial anesthetic complications: NOne Was Beta Ivan taken within 24 hours: N/A Was Clonidine taken within 24 hours: N/A Last intake: 1700 Social No alcohol and No tobacco Exam alert, oriented x 3, clear to auscultation bilaterally and regular rate & rhythm Airway Mallampati: Class II Dentition: full Anesthetic Plan ASA status: 1E Anesthesia: General Other: RSI Risk of > 500 ml blood loss (7ml/kg in children): No Medications/Allergies Home Medications Medication Instructions Recorded Confirmed Last Taken Type hydrocodone 5 mg-acetaminophen 325 1 tab PO Q8H PRN pain #7 tabs 07/11/23 12/06/23 Unknown Rx mg tablet ondansetron 4 mg disintegrating 4 mg PO Q8H PRN nausea and 07/11/23 12/06/23 Unknown Rx tablet vomiting #10 tabs cranberry fruit concentrate 250 mg 250 mg PO TID PRN 07/22/23 12/06/23 Unknown History chewable tablet (Azo Cranberry) pantoprazole 40 mg tablet,delayed 40 mg PO BID 90 days #180 tabs 07/22/23 12/06/23 Unknown Rx release (Protonix) sucralfate 1 gram tablet 1 g PO BID 4 weeks #56 tabs 07/22/23 12/06/23 Unknown Rx Allergies Allergy/AdvReac Type Severity Reaction Status Date / Time amoxicillin Allergy ALGY-Difficulty Verified 03/26/24 19:53 Breathing Penicillins Allergy ALGY-Difficulty Verified 03/26/24 19:53 Breathing prednisone Allergy suicidal Verified 03/26/24 19:53 thoughts farzad Allergy super Uncoded 03/26/24 19:53 inflammed skin PFSH Anesthesia Medical History delivery delivered Malrotation of intestine Surgical History History of appendectomy Hx of tonsillectomy H/O adenoidectomy History of rhinoplasty History of intestinal surgery Had knot removed in [place] -age 11 Social History Smoking and tobacco/nicotine status: unknown if used tobacco/nicotine Alcohol intake: current Alcohol intake frequency: holidays/special occasions only Substance/Drug Use: never Data Anesthesia 03/26/24 21:33 03/26/24 20:37 Short CBC 03/26/24 03/26/24 Range/Units 20:37 21:33 WBC Cancelled 4.27 Hgb Cancelled 10.50 L Hct Cancelled 32.6 L MCV Cancelled 93.1 Plt Count Cancelled 251 Neut % (Auto) Cancelled 69.1 Neut # (Auto) Cancelled 2.95 BMP 03/26/24 20:37 Sodium 139 Potassium 3.8 Chloride 102 Carbon Dioxide 21 L BUN 12 Creatinine 0.4 L Glucose 91 Calcium 9.2 Liver Function 03/26/24 Range/Units 20:37 Total Bilirubin 0.9 (0.15-1.2) mg/dL AST 16 (0-32) U/L ALT 18 (0-33) U/L Alkaline Phosphatase 53 (35-105) U/L Albumin 4.8 (3.5-5.2) g/dL Blood Bank 03/26/24 21:33 Blood Type A Positive Rho(D) Type Rh positive Antibody Screen Negative Cardiac Studies: 2 No Data to Display
--- NOTE | 2024-03-26 23:39 | W.PM.OPSUD ---
Surgery/Procedure H&P Update DATE OF PROCEDURE: March 26, 2024 DATE H&P PERFORMED: 03/26/24 H&P UPDATE INFORMATION: I have reviewed H&P completed within last 30 days, I have examined patient prior to procedure and No changes to prior documentation PLANNED PROCEDURE: Operation Date: 03/26/24 23:30 Proposed Procedures exploratory laparotomy, bilateral salpingectomy - Gallo Morrow MD
[2024-03-27] VITALS (15 sets, daily range): BP systolic 91–144; BP diastolic 53–86; PULSE 70–135; RESP 14–18; TEMP 36.7–37.1; O2SAT 96–99; BMI 23.0
--- NOTE | 2024-03-27 00:20 | PM.OP ---
Operative Report Date of procedure: March 27, 2024 Pre-op diagnosis: ruptured right tubal ectopic gestation h/o bilateral tubal ligation desires bilateral salpingectomy Post-op diagnosis: ruptured right tubal ectopic gestation h/o bilateral tubal ligation desires bilateral salpingectomy hemoperitoneum Post-op findings: Right fallopian tube markedly dilated with rupture of ectopic gestation Left fallopian tube with previous tubal ligation, most of tube still present Blood and blood clots in posterior cul-de-sac Normal uterus Normal ovaries Procedure done: Exploratory laparotomy Bilateral salpingectomy Implants: none Specimens removed/disposition: bilateral fallopian tubes blood and blood clots from pelvis, sent to pathology Surgeon: Gallo Morrow MD Anesthesia: General Estimated blood loss: 100 cc including blood and blood clots from the pelvis Complications: none Findings: Right fallopian tube markedly dilated with rupture of ectopic gestation Left fallopian tube with previous tubal ligation, most of tube still present Blood and blood clots in posterior cul-de-sac Normal uterus Normal ovaries Condition: stable Disposition: PACU Brief History: 28 y.o. h/o c-sections x two h/o BTL with the last presented to ER c/o lower abdominal pain x several days progressed to acute severe right lower quadrant pain this evening Serum bhcg 1,316 Pelvic sono right adnexal mass + fluid in cul-de-sac Procedure: Informed consent signed The patient was taken to the operating room and placed supine on the table. General anesthesia was induced. A castro catheter was placed. The abdomen was prepped and draped in the usual fashion. A mini-laparotomy Pfannenstiel incision was made over the old scar and carried down through the fasica. The peritoneal cavity was entered. The pelvis was explored with the above findings. The left fallopian tube was identified to its fimbrial end. The mesosalpinx was clamped and the entire fallopian tube was excised using Metzenbaum scissors. The mesosalpinx was oversewn with a continuous stitch of 3-O chromic. No bleeding was seen. The right fallopian tube was markedly enlarged with evidence of rupture. The mesosalpinx was clamped and the entire fallopian tube was excised using Metzenbaum scissors. The mesosalpinx was oversewn with a continuous stitch of 3-O chromic. No bleeding was seen. The pelvis was explored. Blood and blood clots were removed from the posterior cul-de-sac. Normal uterus and ovaries were seen. The fascia was then closed with a continuous stitch of O-Vicryl. The subcutaneous tissue was irrigated and inspected for hemostasis. The skin was then reapproximated using Insorb farzad. Postoperative condition stable Disposition to recovery room Estimated blood loss 100 cc including blood and blood clots from the pelvis Sponge, needle, and instrument counts were correct x two There were no complications
[2024-03-27] MEDS: fentaNYL 50 mcg/mL INJ 2mL IVP (01:05)
[2024-03-27] MEDS: HYDROmorphone 1 mg/mL INJ 1 mL 0.5 MG IVP ×2 (01:10→01:15)
[2024-03-27 01:22] LABS: Bilirubin Urine Negative (Negative); Blood Urine Negative (Negative); Glucose Urine UA Negative (Normal); Ketones Urine Trace (Negative); Leukocyte Esterase Urine Negative (Negative); Nitrate Urine Negative (Negative); Protein Urine Negative (Negative); Specific Gravity, Urine 1.013 (1.005-1.030); Urine Appearance Clear (CLEAR); Urine Color Yellow (Yellow); pH Urine 5.5 (5-7)
[2024-03-27 01:27] LABS: Add Urine Microscopic? YES; Bacteria Urine None Seen /hpf; RBC Urine 0-2 /hpf (0-2); Squamous Epithelial Cell Urine 0-5 /hpf (0-5); WBC Urine 0-5 /hpf (0-5)
[2024-03-27] MEDS: dextrose 5%-lactated ringers 1,000 ML 125 ML IV (02:09)
[2024-03-27] MEDS: ketorolac 30 mg/mL INJ IVP ×2 (02:12→06:31)
[2024-03-27] MEDS: HYDROcodone-acetaminophen 5-325 mg Tablet PO ×2 (02:14→08:31)
[2024-03-27] MEDS: acetaminophen 325 mg Tablet 650 MG PO (04:09)
[2024-03-27] MEDS: docusate sodium 100 mg Capsule PO (08:31)
[2024-03-27 10:07] LABS: Hematocrit 28.5 % (36-47); Mean Corpuscular Hemoglobin 30.4 pg (27-33); Mean Corpuscular Volume 92.2 fl (85-98); Mean Platelet Volume 9.6 fL (7.4-10.4); Platelet Count 241 10^3/cmm (157-399); Red Blood Count 3.09 10^6/uL (3.85-5.65); Red Cell Distribution Width 11.9 % (12.1-15.1)
--- NOTE | 2024-03-27 14:30 | PM.OBGYPN ---
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 Subjective: Interval history: c/o mild-moderate incisional pain tolerating po well voiding and ambulating well Vitals/I&O/Wt Last Vital Signs Temp 98.5 F 03/27/24 13:32 Pulse 70 03/27/24 13:32 Resp 17 03/27/24 13:32 BP 109/63 03/27/24 13:32 Pulse Ox 97 03/27/24 13:32 O2 Del Method Room Air 03/27/24 13:32 03/26/24 03/27/24 03/27/24 22:59 06:59 14:59 Intake Total 200 / 200 Output Total 500 / 500 400 / 400 Balance -300 / -300 -400 / -400 Weight last 48 hrs Weight 130 lb Weight 130 lb Weight 130 lb Physical Exam Narrative: VS normal General comfortable, awake, alert Lungs: clear Cor: RRR Abd: soft, nondistended Mild incisional tenderness No rebound Wound clean and dry Ext: normal Urinary Catheter Management: Rios: Cath Placed During This Visit: yes, but has since been removed by the nurse Reason for Continuing Indwelling Catheter: Decision to DC Catheter Urinary Catheter Date of Insertion: 03/27/24 Urinary Catheter Time of Insertion: 00:07 Date Urinary Catheter Removed: 03/27/24 Time Urinary Catheter Discontinued: 09:30 Data 03/27/24 09:30 03/26/24 20:37 A&P Assessment and plan (1) Ruptured right tubal ectopic causing hemoperitoneum: POD #0 bilateral salpingectomy for ruptured right tubal ectopic Doing well Plan discharge to home f/u in three days call / return if fever, chills, nausea, vomiting, worsening abdominal pain, vaginal bleeding Attestations Medical Necessity Statement*: patient s/p bilateral salpingectomy for ruptured ectopic, plan to discharge to home today Coding Level of Care Code Acute Code for Chg Fwd Diagnoses Ruptured right tubal ectopic causing hemoperitoneum O00.101; K66.1 Time Spent (min) 20
--- NOTE | 2024-03-27 14:32 | PM.OBGYDC ---
Discharge Providers PREPPER Date of Admission: 03/26/24 23:30 Date of Discharge: 03/27/24 Attending Provider at Admission: Gallo Morrow MD Attending Provider at Discharge: Gallo Morrow MD Consults: none Diagnoses at Discharge Discharge Diagnosis (1) Ruptured right tubal ectopic causing hemoperitoneum: Details from hospital stay: 28 y.o. h/o c-sections x two h/o BTL with the last presented to ER c/o lower abdominal pain x several days progressed to acute severe right lower quadrant pain on evening of admission Serum bhcg 1,316 Pelvic sono right adnexal mass + fluid in cul-de-sac Discussed with patient procedure of salpingectomy for likely ectopic Patient expressed concern she may get another ectopic on the other side in the future Discussed bilateral salpingectomy Patient wanted removal of the other tube as well to prevent any possibility of future ectopic exploratory laparotomy and bilateral salpingectomy was performed Findings at surgery: Right fallopian tube markedly dilated with rupture of ectopic gestation Left fallopian tube with previous tubal ligation, most of tube still present Blood and blood clots in posterior cul-de-sac Normal uterus Normal ovaries patient did well postoperatively and was discharged to home on the first postoperative day Status: Acute Reason for Visit Reason for Visit: pelvic pressure and pain, Vomitting Brief History: 28 y.o. h/o c-sections x two h/o BTL with the last presented to ER c/o lower abdominal pain x several days progressed to acute severe right lower quadrant pain on evening of admission Hospital Course Hospital Course 28 y.o. h/o c-sections x two h/o BTL with the last presented to ER c/o lower abdominal pain x several days progressed to acute severe right lower quadrant pain on evening of admission Serum bhcg 1,316 Pelvic sono right adnexal mass + fluid in cul-de-sac Discussed with patient procedure of salpingectomy for likely ectopic Patient expressed concern she may get another ectopic on the other side in the future Discussed bilateral salpingectomy Patient wanted removal of the other tube as well to prevent any possibility of future ectopic exploratory laparotomy and bilateral salpingectomy was performed Findings at surgery: Right fallopian tube markedly dilated with rupture of ectopic gestation Left fallopian tube with previous tubal ligation, most of tube still present Blood and blood clots in posterior cul-de-sac Normal uterus Normal ovaries patient did well postoperatively and was discharged to home on the first postoperative day Physical Exam Narrative: VS normal General comfortable, awake, alert Lungs: clear Cor: RRR Abd: soft, nondistended Mild incisional tenderness No rebound Wound clean and dry Ext: normal Urinary Catheter Management: Rios: Cath Placed During This Visit: yes, but has since been removed by the nurse Reason for Continuing Indwelling Catheter: Decision to DC Catheter Urinary Catheter Date of Insertion: 03/27/24 Urinary Catheter Time of Insertion: 00:07 Date Urinary Catheter Removed: 03/27/24 Time Urinary Catheter Discontinued: 09:30 Discharge Data Studies Completed and Pending Completed Studies During Hospitalization Category Date Time Status US OB transvaginal [id number] Stat Ultrasound 03/26/24 21:06 Completed Pending at discharge Category Date Time Status Pathology: Surgical [PTH] Routine Pth 03/27/24 00:26 Received Radiology Impressions Transvaginal US 03/26/24 21:06 IMPRESSION: Findings are suspicious for right adnexal ectopic .Clinical correlation is advised. THIS REPORT CONTAINS FINDINGS THAT MAY BE CRITICAL TO PATIENT CARE. The findings were verbally communicated via telephone conference with Dr Sweet at 11:39 PM [employer] on 03/26/2024. The findings were acknowledged and understood. Laboratory Results WBC 3.80 10^3/uL (3.29-11.43) 03/27/24 09:30 Corrected WBC Cancelled 03/26/24 20:37 RBC 3.09 10^6/uL (3.85-5.65) L 03/27/24 09:30 Hgb 9.40 g/dL (11.27-16.99) L 03/27/24 09:30 Hct 28.5 % (36-47) L 03/27/24 09:30 MCV 92.2 fl (85-98) 03/27/24 09:30 MCH 30.4 pg (27-33) 03/27/24 09:30 MCHC 33.0 g/dL (30-55) 03/27/24 09:30 RDW 11.9 % (12.1-15.1) L 03/27/24 09:30 Plt Count 241 10^3/cmm (157-399) 03/27/24 09:30 MPV 9.6 fL (7.4-10.4) 03/27/24 09:30 Gran % Cancelled 03/26/24 20:37 Neut % (Auto) 69.1 % 03/26/24 21:33 Lymph % (Auto) 17.6 % 03/26/24 21:33 [place] % (Auto) 11.5 % 03/26/24 21:33 Eos % (Auto) 1.4 % 03/26/24 21:33 Baso % (Auto) 0.2 % 03/26/24 21:33 Neut # (Auto) 2.95 10^3/uL (1.8-7.7) 03/26/24 21: Lymph # (Auto) 0.8 10^3/uL (0.8-4.8) 03/26/24 21: [place] # (Auto) 0.5 10^3/uL (0.2-0.9) 03/26/24 21:33 Eos # (Auto) 0.1 10^3/uL (0.0-0.8) 03/26/24 21:33 Baso # (Auto) 0.0 10^3/uL (0.0-0.1) 03/26/24 21:33 Absolute Gran (auto) Cancelled 03/26/24 20:37 Nucleated RBC % (auto) 0 % 03/26/24 21:33 Nucleated RBCs # 0.0 /100WBC 03/26/24 21:33 Sodium 139 mmol/L (136-145) 03/26/24 20:37 Potassium 3.8 mmol/L (3.5-5.1) 03/26/24 20:37 Chloride 102 mmol/L (98-107) 03/26/24 20:37 Carbon Dioxide 21 mmol/L (22-29) L 03/26/24 20:37 Anion Gap 19.8 (5-19) H 03/26/24 20:37 BUN 12 mg/dL (6-20) 03/26/24 20:37 Creatinine 0.4 mg/dL (0.5-0.9) L 03/26/24 20:37 GFR Calculation 188.7 mL/min (90-130) H 03/26/24 20:37 Glucose 91 mg/dL (65-115) 03/26/24 20:37 Calculated Osmolality 287 mOsm/kg (285-295) 03/26/24 20:37 Calcium 9.2 mg/dL (8.5-10.5) 03/26/24 20:37 Total Bilirubin 0.9 mg/dL (0.15-1.2) 03/26/24 20:37 AST 16 U/L (0-32) 03/26/24 20:37 ALT 18 U/L (0-33) 03/26/24 20:37 Alkaline Phosphatase 53 U/L (35-105) 03/26/24 20:37 Total Protein 7.9 g/dL (6.6-8.7) 03/26/24 20:37 Albumin 4.8 g/dL (3.5-5.2) 03/26/24 20:37 Globulin 3.1 g/dL (1.3-4.6) 03/26/24 20:37 Lipase 20 U/L (13-60) 03/26/24 20:37 HCG, Qual Positive (Negative) H 03/26/24 20:37 Ser , Semi-Qnt 1316.00 mIU/mL 03/26/24 20:37 Urine Color Yellow (Yellow) 03/26/24 21:44 Urine Appearance Clear (CLEAR) 03/26/24 21:44 Urine pH 5.5 (5-7) 03/26/24 21:44 Ur Specific [place] 1.013 (1.005-1.030) 03/26/24 21:44 Urine Protein Negative (Negative) 03/26/24 21:44 Urine Glucose (UA) Negative (Normal) 03/26/24 21:44 Urine Ketones Trace (Negative) 03/26/24 21:44 Urine Blood Negative (Negative) 03/26/24 21:44 Urine Nitrate Negative (Negative) 03/26/24 21:44 Urine Bilirubin Negative (Negative) 03/26/24 21:44 Urine Urobilinogen 1.0 mg/dL (Negative) 03/26/24 21:44 Ur Leukocyte Esterase Negative (Negative) 03/26/24 21:44 Urine RBC 0-2 /hpf (0-2) 03/26/24 21:44 Urine WBC 0-5 /hpf (0-5) 03/26/24 21:44 Ur Squamous Epith Cells 0-5 /hpf (0-5) 03/26/24 21:44 Amorphous Sediment Not Reportable 03/26/24 21:44 Urine Bacteria None seen /hpf (NONE) 03/26/24 21:44 Hyaline Casts 0.40 /lpf 03/26/24 21:44 Blood Type A Positive 03/26/24 21:33 Rho(D) Type Rh positive 03/26/24 21:33 Antibody Screen Negative 03/26/24 21:33 Procedures Performed exploratory laparotomy bilateral salpingectomy Vitals Last Vital Signs Temp 98.5 F 03/27/24 13:32 Pulse 70 03/27/24 13:32 Resp 17 03/27/24 13:32 BP 109/63 03/27/24 13:32 Pulse Ox 97 03/27/24 13:32 O2 Del Method Room Air 03/27/24 13:32 Results Labs OB ([facility]): Blood Type A Positive 03/26/24 Antibody Screen Negative 03/26/24 Hct 28.5 % (36-47) L 03/27/24 Hgb 9.40 g/dL (11.27-16.99) L 03/27/24 Rho(D) Type Rh positive 03/26/24 Plt Count 241 10^3/cmm (157-399) 03/27/24 Ser , Semi-Qnt 1316.00 mIU/mL 03/26/24 HCG, Qual Positive (Negative) H 03/26/24 Discharge Plan Discharge Patient Disposition: Home Condition: Stable Prescriptions: New oxycodone-acetaminophen [Percocet] 5-325 mg tablet 1 tab PO Q8H PRN (Reason: pain) Qty: 30 0RF Discharge Orders: Discharge Order (Routine); Ordered 03/27/24 Ordered By: Gallo Morrow Referrals: Gallo Morrow MD [Physician] - 2 weeks (Call the office first thing on Saturday to schedule a 2 and [address] Morrow ) Discharge Diet: Usual diet Discharge Activity: Increase activity as tolerated Patient Instructions: Acute Wound Care (DC), Salpingectomy (GEN), OB Abdominal Surgery - [facility], OB Anesthesia Instructions, OB Food/Drug Interaction Guide, Opioid Safety, Post Anesthesia Care Activity Restrictions/Additional Instructions: Return to see me next week. Discharge Attestations PREPPER Time Spent in Discharge Care*: less than 30 min Coding Level of Care Code Acute Code for Chg Fwd Diagnoses Ruptured right tubal ectopic causing hemoperitoneum O00.101; K66.1 Time Spent (min) 20
== END 2024-03-27 14:50 | disposition home or self-care (01) ==
LOC: ER 22:02 → OR 22:40 → OBGYN 23:30
PROVIDERS: Emergency Medicine; Admitting Provider Obstetrics & Gynecology; Emergency Provider Physician Assistant; Visit Provider Obstetrics & Gynecology
PROC: 10T20ZZ Resection of Products of Conception, Ectopic, Open Approach (ICD-10-PCS; CPT 59120; principal; 2024-03-26 22:00)
PROC: (CPT 58700; 2024-03-26 22:00)
PROC: (CPT 49000; 2024-03-26 22:00)
DX: O00.101 Right tubal pregnancy without intrauterine pregnancy (principal); K66.1 Hemoperitoneum
CPT/HCPCS: 59120; 36415; 51702; 76817; 80053; 81001; 83690; 84702; 84703; 85025; 85027; 86850; 86900; 88305; 96374; 96375; 99285; G0378; J1171; J1885; J2250; J2270; J2405; J2704; J2710; J3010; J3490; J7121

== ENCOUNTER → 2024-03-31 16:00 | Outpatient (BNVA) | payer SELFPAY | PROVIDERS: Visit Provider Obstetrics & Gynecology | DX: Z87.59 Personal history of other complications of pregnancy, childbirth and the puerperium (principal) | CPT/HCPCS: 84702 ==

== ENCOUNTER → 2024-04-07 15:45 | Outpatient (BNVA) | payer SELFPAY | PROVIDERS: Visit Provider Obstetrics & Gynecology | DX: R10.2 Pelvic and perineal pain (principal); N91.2 Amenorrhea, unspecified; Z87.59 Personal history of other complications of pregnancy, childbirth and the puerperium | CPT/HCPCS: 81000; 81025; 87086 ==

== ENCOUNTER 2025-03-27 12:28 | Emergency (ER) | payer SELFPAY ==
[2025-03-27 12:34] VITALS: BP 163/89; PULSE 144; RESP 16; TEMP 36.9; O2SAT 100; BMI 22.1
--- NOTE | 2025-03-27 12:41 | W.ED.ALLEREA ---
HPI - Allergic Reaction General: Chief complaint: Allergic Reaction Stated complaint: hives on body Time Seen by Provider: 03/27/25 12:28 Source: patient Mode of arrival: ambulatory Limitations: no limitations History of Present Illness: HPI narrative: 29-year-old female states she has had hive-like rash to her body over the last 2 days. States it seems to come and go and move. States it is very pruritic in nature and burning. Also has had some slight dysuria she denies any shortness of breath or throat swelling Related Data Previous Rx's ?Medication ?Instructions ?Recorded oxycodone-acetaminophen 5 mg-325 1 tab PO Q8H PRN pain #30 tabs 03/27/24 mg tablet (Percocet) oxycodone-acetaminophen 5 mg-325 1 tab PO Q6H PRN pain 5 days #30 03/31/24 mg tablet (Percocet) tabs nitrofurantoin 100 mg PO BID #14 caps 04/07/24 monohydrate/macrocrystals 100 mg capsule (Macrobid) oxycodone-acetaminophen 5 mg-325 1 tab PO Q8H PRN pain 5 days #14 04/07/24 mg tablet (Percocet) tabs sulfamethoxazole 400 1 tab PO BID #14 tabs 06/01/24 mg-trimethoprim 80 mg tablet (Bactrim) prednisone 50 mg tablet 50 mg PO DAILY #5 tabs 03/27/25 Allergies Allergy/AdvReac Type Severity Reaction Status Date / Time amoxicillin Allergy ALGY-Difficulty Verified 03/27/25 12:38 Breathing Penicillins Allergy ALGY-Difficulty Verified 03/27/25 12:38 Breathing prednisone Allergy suicidal Verified 03/27/25 12:38 thoughts farzad Allergy super Uncoded 03/27/25 12:38 inflammed skin Review of Systems Skin/Breast: Reports: rash and pruritus PFSH ED PFSH: Medical History Ruptured right tubal ectopic causing hemoperitoneum delivery delivered Malrotation of intestine Surgical History History of appendectomy Hx of tonsillectomy H/O adenoidectomy History of rhinoplasty History of intestinal surgery Had knot removed in [place] -age 11 Social History Smoking and tobacco/nicotine status: current every day tobacco/nicotine user Alcohol intake: current Alcohol intake frequency: holidays/special occasions only Substance/Drug Use: never Physical Exam Const: COMMON NORMALS: no acute distress, patient oriented x3 and healthy appearing HENMT: COMMON NORMALS: normocephalic and atraumatic HEAD & SCALP: normocephalic and atraumatic Neck/C-Spine: COMMON NORMALS: full ROM and supple Resp: COMMON NORMALS: normal respiratory effort, No retractions, No use of accessory muscles and clear to auscultation bilaterally AUSCULTATION: clear to auscultation bilaterally Cardio: COMMON NORMALS: regular rhythm and No murmurs present (Cardio) RATE: tachycardic RHYTHM: regular rhythm Extremity: COMMON NORMALS: normal to inspection and full ROM Neuro: COMMON NORMALS: patient oriented x3, moves all extremities and no focal motor deficits Psych: COMMON NORMALS: mental status grossly normal, Normal thought process present and cooperative THOUGHT PROCESS: Normal thought process present Skin: COMMON NORMALS: no wounds NARRATIVE SKIN EXAM: Urticarial rash to body Course Vital Signs: Vital signs: Vital Signs Temperature 98.4 F 03/27/25 12:34 Pulse Rate 144 H 03/27/25 12:34 Respiratory Rate 16 03/27/25 12:34 Blood Pressure 163/89 03/27/25 12:34 Pulse Oximetry 100 03/27/25 12:34 Oxygen Delivery Me thod Room Air 03/27/25 12:34 MDM - Allergic Reaction Medical Decision Making Patient presents here with rash consistent with urticaria likely allergic reaction. Rash is improving here after IV Benadryl Pepcid and Solu-Medrol. Will place on 5-day course of prednisone. She has no signs of Barragan-Don's. No signs of anaphylaxis she is stable for discharge follow-up with PCP return if worsening. Medical Records I reviewed the patient's medical records. Lab Data I reviewed the patient's lab results. Laboratory Results Urine Color Yellow (Yellow) 03/27/25 13:03 Urine Appearance Clear (CLEAR) 03/27/25 13:03 Urine pH 5.5 (5-7) 03/27/25 13:03 Ur Specific [place] 1.015 (1.005-1.030) 03/27/25 13:03 Urine Protein Negative (Negative) 03/27/25 13:03 Urine Glucose (UA) Negative (Normal) 03/27/25 13:03 Urine Ketones Negative (Negative) 03/27/25 13:03 Urine Blood Negative (Negative) 03/27/25 13:03 Urine Nitrate Negative (Negative) 03/27/25 13:03 Urine Bilirubin Negative (Negative) 03/27/25 13:03 Urine Urobilinogen 0.2 mg/dL (Negative) 03/27/25 13:03 Ur Leukocyte Esterase Negative (Negative) 03/27/25 13:03 Urine RBC 0-2 /hpf (0-2) 03/27/25 13:03 Urine WBC 0-5 /hpf (0-5) 03/27/25 13:03 Ur Squamous Epith Cells 0-5 /hpf (0-5) 03/27/25 13:03 Amorphous Sediment Not Reportable 03/27/25 13:03 Urine Bacteria None seen /hpf (NONE) 03/27/25 13:03 Hyaline Casts 0-4 /lpf H 03/27/25 13:03 No radiology studies performed this visit Discharge Plan Discharge Patient Disposition: Home Clinical Impression: Allergic reaction, Urticaria Condition: Stable Prescriptions: New prednisone 50 mg tablet 50 mg PO DAILY Qty: 5 0RF No Action oxycodone-acetaminophen [Percocet] 5-325 mg tablet 1 tab PO Q6H PRN (Reason: pain) 5 Days Qty: 30 0RF nitrofurantoin monohyd/m-cryst [Macrobid] 100 mg capsule 100 mg PO BID Qty: 14 0RF Rx Instructions: must administer with a meal/food oxycodone-acetaminophen [Percocet] 5-325 mg tablet 1 tab PO Q8H PRN (Reason: pain) 5 Days Qty: 14 0RF sulfamethoxazole-trimethoprim [Bactrim] 400-80 mg tablet 1 tab PO BID Qty: 14 0RF oxycodone-acetaminophen [Percocet] 5-325 mg tablet 1 tab PO Q8H PRN (Reason: pain) Qty: 30 0RF Discharge Orders: Discharge ED (Routine); Ordered 03/27/25 Ordered By: Medhat Wilson Discharge Diet: Advance as tolerated Discharge Activity: Resume usual activity Patient Instructions: Urticaria (ED), General Allergic Reaction (ED) Print Language: [place] Coding Level of Care Code ED Fly Winder for Teresa Monreal
[2025-03-27] MEDS: methylPREDNISolone sod succ 125 mg/2 mL INJ IVP (12:43)
[2025-03-27] MEDS: diphenhydrAMINE 50 mg/mL SDV 1mL IVP (12:46)
[2025-03-27] MEDS: LORazepam 2 mg/mL INJ 1 mL 1 MG IVP (12:48)
[2025-03-27 13:10] LABS: Glucose Urine UA Negative (Normal); Nitrate Urine Negative (Negative); Specific Gravity, Urine 1.015 (1.005-1.030)
[2025-03-27 13:15] LABS: Add Urine Microscopic? YES
[2025-03-27 13:27] VITALS: BP 110/67; PULSE 103; O2SAT 98
== END 2025-03-27 13:28 | disposition home or self-care (01) ==
PROVIDERS: Emergency Provider Emergency Medicine
DX: T78.40XA Allergy, unspecified, initial encounter (principal); L50.9 Urticaria, unspecified; Z72.0 Tobacco use; X58.XXXA Exposure to other specified factors, initial encounter
CPT/HCPCS: 36415; 81001; 96374; 96375; 99284; J1200; J2060; J2919; J3490